=== PATIENT | female | born 1995 | race Caucasian/White ===

== ENCOUNTER 2017-04-14 22:17 | Emergency (ER) | payer BC, OTHER ==
[2017-04-14 22:30] VITALS: BP 119/76; PULSE 85; TEMP 97.8; BMI 27.4
[2017-04-14] MEDS ORDERED: VANCOMYCIN 1 GRAM (PRE-DOCKED) 1,000 MG/250 ML BAG IVPB ONE (22:37)
[2017-04-14] MEDS ORDERED: VANCOMYCIN 1,000 MG VIAL (RESTRICTED TO ID ONLY) ONE (22:41)
--- NOTE | 2017-04-14 22:46 | PDOC ---
History of Present Illness - General Chief Complaint: Redness To Affected Area Stated Complaint: REDNESS TO LT HAND 2ND FINGER Time Seen by Provider: 04/14/17 22:35 History Source: Patient Exam Limitations: No Limitations - History of Present Illness Initial Comments: 04/14/17 22:49 This is a 21-year-old female who comes in complaining of a infection in her left index finger. Patient is been dealing with this infection times over a week. Patient has had multiple visits to urgent care center. Patient was initially diagnosed with a paronychia which was incised and drained with out any. Months. Patient was started on Bactrim and has been on Bactrim for about 5 days. Patient said the infection got worse so she returned and an attempt at opening it on the palmar side was made and she was started on clindamycin in addition to the Bactrim. Patient has been on clindamycin now 2 days and says that it is minimally better but still not improved significantly. Patient denies any fevers or chills. Patient says that the tip of the finger is uncomfortable but not painful. Patient denies any streaking up her hand or arm. PAST MEDICAL HISTORY: no significant history PAST SURGICAL HISTORY: no significant history FAMILY HISTORY: no pertinant history SOCIAL HISTORY: Pt lives with family and is employed. MEDICATIONS: reviewed ALLERGIES: As per nursing notes Review of Systems General: No fevers or chills, no weakness, no weight loss HEENT: No change in vision. No sore throat,. No ear pain CardioVascular: No chest pain or shortness of breath Respiratory:No cough, or wheezing. Gastrointestinal: no nausea, vomitting, diarrhea or constipation, No rectal bleeding Genitourinary: No dysuria, hematuria, or frequency Musculoskeletal: No joint or muscle pain or swelling Neurologic: No headache, vertigo, dizziness or loss of consciousness Psychiatric: nor depression Skin: No rashes or easy bruising Endocrine: no increased thirst or abnormal weight change Allergic: no skin or latex allergy All other systems reviewed and normal GENERAL: The patient is awake, alert, and fully oriented, in no acute distress. HEAD: Normal with no signs of trauma. EYES: Pupils equal, round and reactive to light, extraocular movements intact, sclera anicteric, conjunctiva clear. EXTREMITIES: Normal range of motion, no edema. Left index finger there is some swelling and erythema to the distal phalanx of the left index finger diffusely. There is no purulence. There is no tenderness on palpation of the extensor or flexor tendon sheath. The palmar surface of the distal phalanx is soft to palpation. There is some mild increase in warmth. Neurovascular is intact. NEUROLOGICAL: Normal speech, normal gait. PSYCH: Normal mood, normal affect. SKIN: Warm, Dry, normal turgor, no rashes or lesions noted. Assessment and plan: This is a 21-year-old female who comes in after multiple visits to an urgent care center for an infection in her left index finger. Patient thinks it may have started after she got a manicure. Patient had a CBC done that had a normal white count and no left shift. Patient was referred to Dr. Marquez and told to call him in the morning for a follow-up appointment as soon as possible in the meantime she was told to continue her antibiotics Past History - Past Medical History Allergies/Adverse Reactions: Allergies Allergy/AdvReac Type Severity Reaction Status Date / Time No Known Allergies Allergy Unverified 01/17/14 14:08 Home Medications: Ambulatory Orders Dextroamphetamine/Amphetamine [Adderall 30 Mg Tablet] 30 mg PO DAILY tablet Clindamycin 04/14/17 Desog-E.estradiol/E.estradiol [Desogestr-Eth Estrad Eth Estra] 1 each PO DAILY 04/14/17 Sulfamethoxazole/Trimethoprim [Bactrim Ds -] 1 tab PO BID 04/14/17 Cancer: Yes (SKIN) Thyroid Disease: Yes (HASHIMOTOS) - Suicide/Smoking/Psychosocial Hx Smoking History: Never smoked *Physical Exam - Vital Signs Last Vital Signs Temp Pulse Resp BP Pulse Ox 97.8 F 85 16 119/76 97 04/14/17 22:27 04/14/17 22:27 04/14/17 22:27 04/14/17 22:27 04/14/17 22:27 ED Treatment Course - LABORATORY CBC & Chemistry Diagram: 04/14/17 22:40 *DC/Admit/Observation/Transfer Diagnosis at time of Disposition: Infection of finger - Discharge Dispostion Disposition: HOME Condition at time of disposition: Stable Admit: No - Patient Instructions Additional Instructions: Continue your antibiotics as prescribed. Call Dr. Marquez in the morning at [phone].tell them you were in the [facility] apartment last night and we referred you to him and would like you to be seen and evaluated by him as soon as possible for a infection of your finger. Return to the emergency department immediately with ANY new, persistent or worsening symptoms. Continue any medications as previously prescribed by your physician. You should follow up with your primary doctor as soon as possible regarding today's emergency department visit. . Please make sure your doctor reviews the results of your emergency evaluation. Thank you for coming to the Emergency Department today for your care. It was a pleasure to see you today. Please note that your evaluation is INCOMPLETE until you follow-up with your doctor.
[2017-04-14 22:53] LABS: EOSINOPHIL 1.2 % (0-4.5); MCH 31.2 pg (25.7-33.7); MCHC 34.6 g/dl (32.0-36.0); MEAN CELL VOLUME 90.2 fl (80-96); NEUTROPHILS 52.7 % (42.8-82.8); PLATELET COUNT 295 K/MM3 (134-434); RDW 11.3 % (11.6-15.6); WHITE BLOOD COUNT 6.3 K/mm3 (4.0-10.8)
== END 2017-04-14 23:55 | disposition home or self-care (01) ==
LOC: FER 22:17
DX: L08.9 Local infection of the skin and subcutaneous tissue, unspecified (principal); Z85.828 Personal history of other malignant neoplasm of skin; E06.3 Autoimmune thyroiditis
CPT/HCPCS: 36415; 85025; 99281-25

== ENCOUNTER 2018-11-15 15:24 | Emergency (ER) | payer BC ==
[2018-11-15 15:39] VITALS: BP 117/63; PULSE 91; TEMP 98.9; BMI 25.0
[2018-11-15] MEDS ORDERED: SODIUM CHLORIDE 1,000 ML IV ONE (16:30)
[2018-11-15] MEDS ORDERED: METOCLOPRAMIDE HCL INJECTION 10 MG/2 ML VIAL IVPUSH ONE (16:36)
[2018-11-15] MEDS ORDERED: METOCLOPRAMIDE HCL INJECTION 10 MG/2 ML VIAL ONE (17:09)
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
== END 2018-11-15 17:39 | disposition home or self-care (01) ==
LOC: SUPCPDRO 15:24 → FER 15:24
PROC: 3E033GC Introduction of Other Therapeutic Substance into Peripheral Vein, Percutaneous Approach (ICD-10-PCS; principal; 2018-11-15)
PROC: 3E0337Z Introduction of Electrolytic and Water Balance Substance into Peripheral Vein, Percutaneous Approach (ICD-10-PCS; 2018-11-15)
DX: G44.209 Tension-type headache, unspecified, not intractable (principal); E06.3 Autoimmune thyroiditis
CPT/HCPCS: 84703; 99282-25; J7030

== ENCOUNTER 2019-01-31 08:10 | Emergency (ER) | payer BC ==
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
[2019-01-31 08:17] VITALS: BP 117/70; PULSE 76; TEMP 98.2; BMI 26.0
[2019-01-31] MEDS ORDERED: ACETAMINOPHEN 1000 MG/100 ML VIAL (NON FORMULARY) IVPB ONE (08:27)
[2019-01-31] MEDS ORDERED: METOCLOPRAMIDE HCL INJECTION 10 MG/2 ML VIAL IVPB ONE (08:28)
[2019-01-31] MEDS ORDERED: SODIUM CHLORIDE 1,000 ML IV ONE (08:29)
[2019-01-31] MEDS ORDERED: METOCLOPRAMIDE HCL INJECTION 10 MG/2 ML VIAL ONE (08:54)
[2019-01-31] MEDS ORDERED: ACETAMINOPHEN INJECTION 100 ML IVPB ONE (08:54)
[2019-01-31] MEDS ORDERED: KETOROLAC TROMETHAMINE 30 MG/1 ML VIAL IVPUSH ONE (09:44)
[2019-01-31] MEDS ORDERED: KETOROLAC TROMETHAMINE 30 MG/1 ML VIAL ONE (09:46)
== END 2019-01-31 10:28 | disposition home or self-care (01) ==
LOC: FER 08:10
PROC: 3E033NZ Introduction of Analgesics, Hypnotics, Sedatives into Peripheral Vein, Percutaneous Approach (ICD-10-PCS; principal; 2019-01-31)
PROC: 3E0333Z Introduction of Anti-inflammatory into Peripheral Vein, Percutaneous Approach (ICD-10-PCS; 2019-01-31)
PROC: 3E033GC Introduction of Other Therapeutic Substance into Peripheral Vein, Percutaneous Approach (ICD-10-PCS; 2019-01-31)
PROC: 3E0337Z Introduction of Electrolytic and Water Balance Substance into Peripheral Vein, Percutaneous Approach (ICD-10-PCS; 2019-01-31)
DX: R51 Headache (principal); E06.3 Autoimmune thyroiditis
CPT/HCPCS: 70450-TC; 84703; 99282-25; J0131; J7030

== ENCOUNTER 2019-10-15 13:00 | Inpatient (IN) | payer BC, OTHER ==
[2019-10-15] MEDS ORDERED: SODIUM CHLORIDE 1,878 ML IV ONE (13:26)
[2019-10-15] MEDS ORDERED: VANCOMYCIN 1,000 MG in DEXTROSE 5%-WATER - 250 ML IVPB ONE (13:29)
[2019-10-15] MEDS ORDERED: VANCOMYCIN 1,000 MG VIAL (RESTRICTED TO ID ONLY) ONE (13:38)
--- NOTE | 2019-10-15 13:39 | PDOC ---
Attending Attestation - Resident Resident Name: Terrance Arnett - ED Attending Attestation I have performed the following: I have examined & evaluated the patient, The case was reviewed & discussed with the resident, I agree w/resident's findings & plan, Exceptions are as noted - HPI HPI: 23 yo F PMH Ant thyroiditis, melanoma, recurrent cellulitis presents with L hand pain, swelling, tenderness. She has been on clindamycin with some i mprovement, but not very much. +Red streaks up her arm. - Physicial Exam PE: GENERAL: Awake, alert, and fully oriented, in no acute distress HEAD: No signs of trauma EYES: PERRLA, EOMI, sclera anicteric, conjunctiva clear ENT: Auricles normal inspection, hearing grossly normal, nares patent, oropharynx clear without exudates. Moist mucosa NECK: Normal ROM, supple, no lymphadenopathy, JVD, or masses LUNGS: Breath sounds equal, clear to auscultation bilaterally. No wheezes, and no crackles HEART: Regular rate and rhythm, normal S1 and S2, no murmurs, rubs or gallops ABDOMEN: Soft, nontender, normoactive bowel sounds. No guarding, no rebound. No masses EXTREMITIES: L hand with swelling over the 1st MCP joint with two small bullae, +surrounding erythema and swelling. +Lymphatic streaking up the L arm. Remainder of extremities with normal range of motion, no edema. No clubbing or cyanosis. NEUROLOGICAL: Cranial nerves II through XII grossly intact. Normal speech, normal gait. Motor and sensation intact SKIN: Warm, dry, normal turgor, no rashes or lesions noted. - Medical Decision Making Pt presents with L hand cellulitis with lymphatic streaking. Bullae were incised in ED, +bloody material with some scant purulent material in them. Will give vanco, as she has not had significant improvement on clinda. Admit. Discharge - Discharge Information Problems reviewed: Yes Clinical Impression/Diagnosis: Cellulitis Qualifiers: Site of cellulitis: extremity Site of cellulitis of extremity: upper extremity Laterality: left Qualified Code(s): L03.114 - Cellulitis of left upper limb Condition: Stable - Follow up/Referral - Patient Discharge Instructions - Post Discharge Activity
--- NOTE | 2019-10-15 13:48 | PDOC ---
History of Present Illness - General Chief Complaint: Redness To Affected Area Stated Complaint: LEFT HAND REDNESS Time Seen by Provider: 10/15/19 13:03 History Source: Patient Exam Limitations: No Limitations - History of Present Illness Initial Comments: Ally Lilly is a 23 yo F w a pmh of Ant's thyroiditis, melanoma, and recurrent left hand infections who presents to the [facility] ER because she has left hand pain, swelling, redness, and tendernass along with two dark colored blisters on the palm of her hand. She states she has been getting these hand infections on and off for many years and they usually respond to clindamycin. She has been taking 900mg of clindamycin for the past 2 days but the infection has gotten worse. When this happened in the past she required hospital admission for IV antibiotics. She was recently seen at urgent care and prescribed v alacyclovir in case her infection was herpetic in nature. She reports no relief from either the clindamycin or the valacyclovir. Denies fevers, chills, cough, chest pain, SOB, abdominal pain, nausea, vomiting, dysuria, frequency, urgency. PCP: In [facility] PSH: Melanoma removal Allergies: NKA, NKDA Social Hx: Pt is a student at [employer]. Drinks recreationally. Denies smoking or other substance abuse. Meds: OCPs Past History - Past Medical History Allergies/Adverse Reactions: Allergies Allergy/AdvReac Type Severity Reaction Status Date / Time No Known Allergies Allergy Verified 10/15/19 13:03 Home Medications: Ambulatory Orders Clindamycin [Cleocin -] 900 mg PO TID 10/15/19 Valacyclovir HCl [Valtrex -] 1,000 mg PO TID 10/15/19 Cancer: Yes (SKIN CANCER TO SCALP) COPD: No Thyroid Disease: Yes (HASHIMOTOS) - Psycho Social/Smoking Cessation Hx Smoking History: Never smoked Have you smoked in the past 12 months: No Information on smoking cessation initiated: No Hx Alcohol Use: ("social") Drug/Substance Use Hx: No Review of Systems - Review of Systems Able to Perform ROS?: Yes Comments:: CONSTITUTIONAL: Absent: fever, no chills, no fatigue EYES: Absent: visual changes ENT: Absent: ear pain, no sore throat CARDIOVASCULAR: Absent: chest pain, no palpitations RESPIRATORY: Absent: cough, no SOB GI: Absent: abdominal pain, no nausea, no vomiting, no constipation, no diarrhea GENITOURINARY: Absent: dysuria, no frequency, no hematuria MUSKULOSKELETAL: Absent: back pain, no arthralgia, no myalgia SKIN: Present: rash NEURO: Absent: headache *Physical Exam - Vital Signs Last Vital Signs Temp Pulse Resp BP Pulse Ox 99 F 105 H 20 107/72 99 10/15/19 13:00 10/15/19 13:00 10/15/19 13:00 10/15/19 13:10/15/19 13:00 - Physical Exam GENERAL: Well-appearing, well-nourished. No apparent distress. HEENT: Normocephalic, atraumatic. PERRL, EOM intact. CARDIOVASCULAR: Tachycardic rate. Normal S1, S2. Regular rhythm. PULMONARY: No evidence of respiratory distress. Lungs clear to auscultation bilaterally. No wheezing, rales or rhonchi. ABDOMEN: Soft, non-distended, non-tender. EXTREMITIES: Normal ROM in all four extremities. No gross deformities. SKIN: The left palmar surface has two dark colored bullae near the base of the 1st digit around 1x1 cm in size. There is a streaking erythematous linear rash up the forearm which extends up until just proximal to the left shoulder. NEUROLOGICAL: No focal neurological deficits. ED Treatment Course - LABORATORY CBC & Chemistry Diagram: 10/15/19 13:45 10/15/19 13:45 - RADIOLOGY Radiology Studies Ordered: Category Date Time Status HAND- LEFT [RAD] Stat Radiology 10/15/19 13:42 Ordered Medical Decision Making - Medical Decision Making Ally Lilly is a 23 yo F w a pmh of Ant's thyroiditis, melanoma, and recurrent left hand infections who presents to the [facility] ER because she has left hand pain, swelling, redness, and tendernass along with two dark colored blisters on the palm of her hand. She states she has been getting these hand infections on and off for many years and they usually respond to clindamycin. She has been taking 900mg of clindamycin for the past 2 days but the infection has gotten worse. When this happened in the past she required hospital admission for IV antibiotics. She was recently seen at urgent care and prescribed valacyclovir in case her infection was herpetic in nature. She reports no relief from either the clindamycin or the valacyclovir. Denies fevers, chills, cough, chest pain, SOB, abdominal pain, nausea, vomiting, dysuria, frequency, urgency. Vital Signs Temp Pulse Resp BP Pulse Ox 99 F 105 H 20 107/72 99 10/15/19 13:00 10/15/19 13:00 10/15/19 13:00 10/15/19 13:00 10/15/19 13:00 DDx IBNLT: Cellulitis, erysipelas, much less likely necrotizing fasciitiis, electrolyte/metabolis disturbance, sepsis Plan: Labs, Abx, admission for IV Abx after failed outpatient Abx - Empiric Vanc started in ED Labs: Unremarkable XR: No free gas in sub q soft tissues. Dispo: Med/Surg Discharge - Discharge Information Problems reviewed: Yes Clinical Impression/Diagnosis: Cellulitis Qualifiers: Site of cellulitis: extremity Site of cellulitis of extremity: upper extremity Laterality: left Qualified Code(s): L03.114 - Cellulitis of left upper limb Condition: Stable - Admission Yes - Follow up/Referral - Patient Discharge Instructions - Post Discharge Activity
--- NOTE | 2019-10-15 14:13 | HP ---
CHIEF COMPLAINT: Left hand pain, swelling HISTORY OF PRESENT ILLNESS: 23 year-old female with a PMH significant for Ant thyroiditis, melanoma, and recurrent left hand cellulitis, presented to the [facility] with left hand pain, swelling, tenderness, and red streaks up her arm. There were also two dark- colored blisters on the palm of the left hand. She states she gets recurrent infections in the left hand, it never really goes away. Last outbreak was 1 1/2 years ago. In the past she has responded to clindamycin. Two days ago she love stained a paper cut to the finger and it developed erythema and blistering over the site of injust. She has been taking clinda for the past two days but the infection has gotten worse. She also has been taking valacyclovir prescribed at an urgent care center but also to no effect. Denies fever, sweats, chills. ER course was notable for: (1) Two bullae incised and drained (2) Vanc x 1 Recent Travel: No PAST MEDICAL HISTORY: Ant's thyroiditis Melanoma Recurrent left hand cellulitis PAST SURGICAL HISTORY: None reported Social History: student at [email or web address] Smoking: no Alcohol: recreationally Drugs: no Allergies No Known Allergies Allergy (Verified 10/15/19 13:03) HOME MEDICATIONS: Home Medications Medication Instructions Recorded Clindamycin [Cleocin -] 900 mg PO TID 10/15/19 Valacyclovir HCl [Valtrex -] 1,000 mg PO TID 10/15/19 REVIEW OF SYSTEMS CONSTITUTIONAL: Absent: fever, chills, diaphoresis, generalized weakness, malaise, loss of appetite, weight change HEENT: Absent: rhinorrhea, nasal congestion, throat pain, throat swelling, difficulty swallowing, mouth swelling, ear pain, eye pain, visual changes CARDIOVASCULAR: Absent: chest pain, syncope, palpitations, irregular heart rate, lightheadedness, peripheral edema RESPIRATORY: Absent: cough, shortness of breath, dyspnea with exertion, orthopnea, wheezing, stridor, hemoptysis GASTROINTESTINAL: Absent: abdominal pain, abdominal distension, nausea, vomiting, diarrhea, constipation, melena, hematochezia GENITOURINARY: Absent: dysuria, frequency, urgency, hesitancy, hematuria, flank pain, genital pain MUSCULOSKELETAL: Absent: myalgia, arthralgia, joint swelling, back pain, neck pain SKIN: swelling, redness, pain, blistering left index finger, hand, arm Absent: rash, itching, pallor HEMATOLOGIC/IMMUNOLOGIC: Absent: easy bleeding, easy bruising, lymphadenopathy, frequent infections ENDOCRINE: Absent: unexplained weight gain, unexplained weight loss, heat intolerance, cold intolerance NEUROLOGIC: Absent: headache, focal weakness or paresthesias, dizziness, unsteady gait, seizure, mental status changes, bladder or bowel incontinence PSYCHIATRIC: Absent: anxiety, depression, suicidal or homicidal ideation, hallucinations. PHYSICAL EXAMINATION Vital Signs - 24 hr 10/15/19 13:00 Temperature 99 F Pulse Rate 105 H Respiratory 20 Rate Blood Pressure 107/72 O2 Sat by Pulse 99 Oximetry (%) GENERAL: Awake, alert, and fully oriented, in no acute distress. HEAD: Normal with no signs of trauma. EYES: Pupils equal, round and reactive to light, extraocular movements intact, sclera anicteric, conjunctiva clear. No lid lag. EARS, NOSE, THROAT: Ears normal, nares patent, oropharynx clear without ex udates. Moist mucous membranes. NECK: Normal range of motion, supple without lymphadenopathy, JVD, or masses. LUNGS: Breath sounds equal, clear to auscultation bilaterally. No wheezes, and no crackles. No accessory muscle use. HEART: Regular rate and rhythm, normal S1 and S2 without murmur, rub or gallop. ABDOMEN: Soft, nontender, not distended, normoactive bowel sounds, no guarding, no rebound, no masses. No hepatomegaly or splenomegaly. MUSCULOSKELETAL: Normal range of motion at all joints. No bony deformities or tenderness. No CVA tenderness. UPPER EXTREMITIES: Dark circular areas on index finger of left hand, deeply erythematous, tender, no drainage seen; hand and fingers are swollen; red streaking up to the elbow LOWER EXTREMITIES: 2+ pulses, warm, well-perfused. No calf tenderness. No peripheral edema. NEUROLOGICAL: Cranial nerves II-XII intact. Normal speech. Normal gait. ASSESSMENT/PLAN 23 year-old female with a PMH significant for Ant thyroiditis, melanoma, and recurrent left hand cellulitis, admitted for left hand cellulitis. 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 Full code. Visit type - Emergency Visit Emergency Visit: Yes ED Registration Date: 10/15/19 Care time: The patient presented to the Emergency Department on the above date and was hospitalized for further evaluation of their emergent condition. - New Patient This patient is new to me today: No - Critical Care Critical Care patient: No
[2019-10-15 14:20] LABS: BASO % 0.4 % (0-2.0); EOS % 0.4 % (0-4.5); HEMATOCRIT 40.5 % (32.4-45.2); LYMPH % 15.6 % (8-40); MCH 32.4 pg (25.7-33.7); MCHC 34.5 g/dl (32.0-36.0); MEAN CELL VOLUME 93.8 fl (80-96); MEAN PLT VOLUME 7.6 fl (7.5-11.1); NEUT % 74.6 % (42.8-82.8); PLATELET COUNT 235 K/MM3 (134-434); RBC 4.32 M/mm3 (3.60-5.2); RDW 11.4 % (11.6-15.6); WHITE BLOOD COUNT 6.2 K/mm3 (4.0-10.8)
[2019-10-15 14:24] LABS: INR 1.14 (0.82-1.09); PROTHROMBIN TIME (PATIENT) 12.7 SEC (10.2-13.0)
[2019-10-15 14:29] LABS: ALBUMIN 4.1 g/dl (3.4-5.0); BILIRUBIN,TOTAL 0.7 mg/dl (0.2-1); CALCIUM 9.1 mg/dl (8.5-10); CREATININE 0.6 mg/dl (0.55-1.3); TOT PROT 7.6 g/dl (6.4-8.2)
[2019-10-15 14:31] LABS: ACTIVATED PTT 25.8 SECONDS (25.2-36.5)
[2019-10-15 14:33] LABS: HCG,QUALITATIVE URINE Negative
[2019-10-15 14:43] LABS: EPITHELIAL CELLS MANY /hpf
--- NOTE | 2019-10-15 15:27 | HP ---
CHIEF COMPLAINT: PCP: HISTORY OF PRESENT ILLNESS: ER course was notable for: (1) (2) (3) Recent Travel: PAST MEDICAL HISTORY: PAST SURGICAL HISTORY: Social History: Smoking: Alcohol: Drugs: Allergies No Known Allergies Allergy (Verified 10/15/19 13:03) HOME MEDICATIONS: Home Medications Medication Instructions Recorded Clindamycin [Cleocin -] 900 mg PO TID 10/15/19 Valacyclovir HCl [Valtrex -] 1,000 mg PO TID 10/15/19 REVIEW OF SYSTEMS CONSTITUTIONAL: Absent: fever, chills, diaphoresis, generalized weakness, malaise, loss of appetite, weight change HEENT: Absent: rhinorrhea, nasal congestion, throat pain, throat swelling, difficulty swallowing, mouth swelling, ear pain, eye pain, visual changes CARDIOVASCULAR: Absent: chest pain, syncope, palpitations, irregular heart rate, lightheadedness, peripheral edema RESPIRATORY: Absent: cough, shortness of breath, dyspnea with exertion, orthopnea, wheezing, stridor, hemoptysis GASTROINTESTINAL: Absent: abdominal pain, abdominal distension, nausea, vomiting, diarrhea, constipation, melena, hematochezia GENITOURINARY: Absent: dysuria, frequency, urgency, hesitancy, hematuria, flank pain, genital pain MUSCULOSKELETAL: Absent: myalgia, arthralgia, joint swelling, back pain, neck pain SKIN: Absent: rash, itching, pallor HEMATOLOGIC/IMMUNOLOGIC: Absent: easy bleeding, easy bruising, lymphadenopathy, frequent infections ENDOCRINE: Absent: unexplained weight gain, unexplained weight loss, heat intolerance, cold intolerance NEUROLOGIC: Absent: headache, focal weakness or paresthesias, dizziness, unsteady gait, seizure, mental status changes, bladder or bowel incontinence PSYCHIATRIC: Absent: anxiety, depression, suicidal or homicidal ideation, hallucinations. PHYSICAL EXAMINATION Vital Signs - 24 hr 10/15/19 10/15/19 13:00 14:40 Temperature 99 F 98.7 F Pulse Rate 105 H Pulse Rate [ 85 Left Apical] Respiratory 20 18 Rate Blood Pressure 107/72 Blood Pressure 102/58 L [Right Arm] O2 Sat by Pulse 99 97 Oximetry (%) GENERAL: Awake, alert, and fully oriented, in no acute distress. HEAD: Normal with no signs of trauma. EYES: Pupils equal, round and reactive to light, extraocular movements intact, sclera anicteric, conjunctiva clear. No lid lag. EARS, NOSE, THROAT: Ears normal, nares patent, oropharynx clear without exudates. Moist mucous membranes. NECK: Normal range of motion, supple without lymphadenopathy, JVD, or masses. LUNGS: Breath sounds equal, clear to auscultation bilaterally. No wheezes, and no crackles. No accessory muscle use. HEART: Regular rate and rhythm, normal S1 and S2 without murmur, rub or gallop. ABDOMEN: Soft, nontender, not distended, normoactive bowel sounds, no guarding, no rebound, no masses. No hepatomegaly or splenomegaly. MUSCULOSKELETAL: Normal range of motion at all joints. No bony deformities or tenderness. No CVA tenderness. UPPER EXTREMITIES: 2+ pulses, warm, well-perfused. No cyanosis. No clubbing. No peripheral edema. LOWER EXTREMITIES: 2+ pulses, warm, well-perfused. No calf tenderness. No peripheral edema. NEUROLOGICAL: Cranial nerves II-XII intact. Normal speech. Normal gait. PSYCHIATRIC: Cooperative. Good eye contact. Appropriate mood and affect. SKIN: Warm, dry, normal turgor, no rashes or lesions noted, normal capillary refill. Laboratory Results - last 24 hr 10/15/19 10/15/19 10/15/19 13:45 13:45 13:45 WBC 6.2 RBC 4.32 Hgb 14.0 Hct 40.5 MCV 93.8 MCH 32.4 MCHC 34.5 RDW 11.4 L Plt Count 235 MPV 7.6 Absolute Neuts (auto) 4.6 Neutrophils % 74.6 Lymphocytes % 15.6 Monocytes % 9.0 Eosinophils % 0.4 Basophils % 0.4 PT with INR 12.7 INR 1.14 PTT (Actin FS) 25.8 Sodium 133 L Potassium 4.0 Chloride 102 Carbon Dioxide 25 Anion Gap 6 L BUN 16.0 Creatinine 0.6 Est GFR (CKD-EPI)AfAm 148.90 Est GFR (CKD-EPI)NonAf 128.48 Random Glucose 91 Calcium 9.1 Total Bilirubin 0.7 AST 18 ALT 13 Alkaline Phosphatase 71 Creatine Kinase 31 Total Protein 7.6 Albumin 4.1 Urine Color Urine Appearance Urine pH Urine Protein Urine Glucose (UA) Urine Ketones Urine Blood Urine Nitrite Urine Bilirubin Urine Urobilinogen Ur Leukocyte Esterase Urine RBC Urine WBC Ur Transition Epith Cell Urine Bacteria Urine HCG, Qual 03/24/20 14:15 WBC RBC Hgb Hct MCV MCH MCHC RDW Plt Count MPV Absolute Neuts (auto) Neutrophils % Lymphocytes % Monocytes % Eosinophils % Basophils % PT with INR INR PTT (Actin FS) Sodium Potassium Chloride Carbon Dioxide Anion Gap BUN Creatinine Est GFR (CKD-EPI)AfAm Est GFR (CKD-EPI)NonAf Random Glucose Calcium Total Bilirubin AST ALT Alkaline Phosphatase Creatine Kinase Total Protein Albumin Urine Color Yellow Urine Appearance Slightly Urine pH 6.5 Urine Protein Negative Urine Glucose (UA) Negative Urine Ketones Negative Urine Blood 2+ H Urine Nitrite Negative Urine Bilirubin Negative Urine Urobilinogen 0.2 Ur Leukocyte Esterase 1+ Urine RBC 80-100 Urine WBC 60-80 Ur Transition Epith Cell Many Urine Bacteria Many Urine HCG, Qual Negative ASSESSMENT/PLAN:
[2019-10-15 15:55] VITALS: BMI 25.6
--- NOTE | 2019-10-15 16:20 | CON.ID ---
Consult - Past Medical History ...LMP: 09/25/19 ...: No - Alcohol/Substance Use Hx Alcohol Use: ("social") - Smoking History Smoking history: Never smoked Have you smoked in the past 12 months: No Home Medications - Allergies Allergies/Adverse Reactions: Allergies Allergy/AdvReac Type Severity Reaction Status Date / Time No Known Allergies Allergy Verified 10/15/19 13:03 - Home Medications Home Medications: Ambulatory Orders Clindamycin [Cleocin -] 900 mg PO TID 10/15/19 Valacyclovir HCl [Valtrex -] 1,000 mg PO TID 10/15/19 Physical Exam Vital Signs: Vital Signs Temperature 98.4 F 10/15/19 15:21 Pulse Rate 98 H 10/15/19 15:21 Respiratory Rate 18 10/15/19 15:21 Blood Pressure 110/70 10/15/19 15:21 O2 Sat by Pulse Oximetry (%) 97 10/15/19 15:21 Labs: CBC, BMP 10/15/19 13:45 10/15/19 13:45
[2019-10-15] MEDS ORDERED: PIPERACILLIN/TAZOBACTAM 3.375 GM VIAL IVPB ONE (17:17)
[2019-10-15] MEDS ORDERED: DEXTROSE 5%-WATER - 50 ML IVPB ONE (17:17)
[2019-10-15] MEDS: PIPERACILLIN/TAZOB 3.375 GM 3.375 GM in DEXTROSE 5%-WATER - 50 ML IVPB SCH (17:37)
[2019-10-15] MEDS: SODIUM CHLORIDE 1,000 ML IV SCH (17:38)
[2019-10-16] MEDS: PIPERACILLIN/TAZOB 3.375 GM 3.375 GM in DEXTROSE 5%-WATER - 50 ML IVPB SCH ×3 (02:00→17:42)
[2019-10-16] MEDS ORDERED: PIPERACILLIN/TAZOBACTAM 3.375 GM VIAL IVPB ONE ×3 (03:27→17:39)
[2019-10-16] MEDS ORDERED: DEXTROSE 5%-WATER - 50 ML IVPB ONE ×3 (03:28→17:39)
[2019-10-16 08:01] LABS: BASO % 0.5 % (0-2.0); EOS % 1.3 % (0-4.5); HEMATOCRIT 34.4 % (32.4-45.2); HEMOGLOBIN 11.7 GM/dl (10.7-15.3); LYMPH % 28.5 % (8-40); MCHC 33.9 g/dl (32.0-36.0); MEAN CELL VOLUME 94.2 fl (80-96); MEAN PLT VOLUME 7.3 fl (7.5-11.1); MONO % 10.4 % (3.8-10.2); NEUT % 59.3 % (42.8-82.8); PLATELET COUNT 214 K/MM3 (134-434); RBC 3.65 M/mm3 (3.60-5.2); RDW 11.6 % (11.6-15.6)
[2019-10-16 08:09] LABS: ALBUMIN 3.3 g/dl (3.4-5.0); BILIRUBIN,TOTAL 0.7 mg/dl (0.2-1); CALCIUM 8.8 mg/dl (8.5-10); CREATININE 0.7 mg/dl (0.55-1.3); MAGNESIUM 1.9 mg/dL (1.8-2.4); POTASSIUM 3.9 mmol/L (3.5-5.1); TOT PROT 6.3 g/dl (6.4-8.2)
[2019-10-16] MEDS: ENOXAPARIN NA (PORCINE) 40 MG/0.4 ML DISP.SYRIN SQ SCH (09:33)
--- NOTE | 2019-10-16 10:20 | EKG ---
Test Reason : Blood Pressure : / mmHG Vent. Rate : 073 BPM Atrial Rate : 073 BPM P-R Int : 138 ms QRS Dur : 082 ms QT Int : 370 ms P-R-T Axes : 018 066 042 degrees QTc Int : 407 ms NORMAL SINUS RHYTHM NORMAL ECG WHEN COMPARED WITH ECG OF 21-MAR-2018 14:59, NO SIGNIFICANT CHANGE WAS FOUND Confirmed by Gary Huddleston MD ([id number]) on 10/16/2019 10:20:10 AM Referred By: GIO DSOUZA Confirmed By:Gary Huddleston MD
--- NOTE | 2019-10-16 13:25 | CON.ORTH ---
Consult Consult Specialty:: orthopedic surgery - History of Present Illness Chief Complaint: 23y F here for L hand injury. pt sustained paper cut several days ago. developed erythema, blistering over site of injury. seen by two ID specialists. tiffanie w valshaila clinda. hx of mulitple episodes of cellulitis in LUE tx ray clinda, started with paronychia. notes feeling much better since starting IV abx. less pain. no other infectious issues - History Source History Provided By: Patient, Medical Record Limitations to Obtaining History: No Limitations - Past Medical History ...LMP: 09/25/19 ...: No Additional Medical History: hypothyroid (autoimmune). melanoma - Alcohol/Substance Use Hx Alcohol Use: ("social") - Smoking History Smoking history: Never smoked Have you smoked in the past 12 months: No Home Medications - Allergies Allergies/Adverse Reactions: Allergies Allergy/AdvReac Type Severity Reaction Status Date / Time No Known Allergies Allergy Verified 10/15/19 13:03 - Home Medications Home Medications: Ambulatory Orders Clindamycin [Cleocin -] 900 mg PO TID 10/15/19 Valacyclovir HCl [Valtrex -] 1,000 mg PO TID 10/15/19 Review of Systems - Review of Systems Constitutional: reports: No Symptoms Eyes: reports: No Symptoms HENT: reports: No Symptoms Cardiovascular: reports: No Symptoms Respiratory: reports: No Symptoms Physical Exam for Ortho Vital Signs: Vital Signs Temperature 98.8 F 10/16/19 09:27 Pulse Rate 86 10/16/19 09:27 Respiratory Rate 20 10/16/19 09:27 Blood Pressure 100/54 L 10/16/19 09:27 O2 Sat by Pulse Oximetry (%) 100 10/16/19 09:27 Constitutional: Yes: Well Nourished, No Distress, Calm Cardiovascular: Yes: Regular Rate and Rhythm Respiratory: Yes: Regular Labs: CBC, BMP 10/16/19 07:00 10/16/19 07:00 INR, PTT INR 1.14 (0.82-1.09) 10/15/19 13:45 - Upper Extremity Hand: Yes: Left, Swelling (mild), Tenderness (volar over 2nd MP joint. Ruptured overlying blood blisters without drainage or fluctuance. 50% ROM of digit with mild discomfort. No fusiform swelling. No flexor sheath tenderness.). No: Deformity Imaging - Results X-ray: Report Reviewed, Image Reviewed (no bony pathology) Problem List - Problems (1) Left arm cellulitis Assessment/Plan: Pt's wound shows no evidence of further collection, no surgical intervention needed at this time Continue abx Elevate Will come by tomorrow for wound check Code(s): L03.114 - CELLULITIS OF LEFT UPPER LIMB
--- NOTE | 2019-10-16 13:58 | PN ---
Progress Note, Physician History of Present Illness: stable no issues feeling better ortho note noted - Current Medication List Current Medications: Active Medications Enoxaparin Sodium (Lovenox -) 40 mg SQ DAILY [facility] Last Admin: 10/16/19 09:33 Dose: Not Given Documented by: Piperacillin Sod/Tazobactam (Sod 3.375 gm/ Dextrose) 50 mls @ 100 mls/hr IVPB Q8H-IV DAMIEN; Protocol Last Admin: 10/16/19 09:32 Dose: 100 mls/hr Documented by: Sodium Chloride (Normal Saline -) 1,000 mls @ 75 mls/hr IV ASDIR DAMIEN Last Admin: 10/15/19 17:38 Dose: 75 mls/hr Documented by: - Objective Vital Signs: Vital Signs Temperature 98.8 F 10/16/19 09:27 Pulse Rate 86 10/16/19 09:27 Respiratory Rate 20 10/16/19 09:27 Blood Pressure 100/54 L 10/16/19 09:27 O2 Sat by Pulse Oximetry (%) 100 10/16/19 09:27 Constitutional: Yes: No Distress, Calm Cardiovascular: Yes: S1, S2 Respiratory: Yes: Regular, CTA Bilaterally Gastrointestinal: Yes: Normal Bowel Sounds, Soft Musculoskeletal: Yes: WNL Extremities: Yes: WNL Wound/Incision: Yes: Clean/Dry, Open to air Neurological: Yes: Alert, Oriented Psychiatric: Yes: Alert, Oriented Labs: CBC, BMP 10/16/19 07:00 10/16/19 07:00 INR, PTT INR 1.14 (0.82-1.09) 10/15/19 13:45
--- NOTE | 2019-10-16 16:48 | PN ---
Physical Exam: SUBJECTIVE: Patient seen and examined OBJECTIVE: Vital Signs Period Temp Pulse Resp BP Sys/Braga Pulse Ox Last 24 Hr 98.3 F-98.8 F 80-94 18-20 100-106/54-62 99-100 GENERAL: Awake, alert, and fully oriented, in no acute distress. HEAD: Normal with no signs of trauma. EYES: Pupils equal, round and reactive to light, extraocular movements intact, sclera anicteric, conjunctiva clear. No lid lag. EARS, NOSE, THROAT: Ears normal, nares patent, oropharynx clear without exudates. Moist mucous membranes. NECK: Normal range of motion, supple without lymphadenopathy, JVD, or masses. LUNGS: Breath sounds equal, clear to auscultation bilaterally. No wheezes, and no crackles. No accessory muscle use. HEART: Regular rate and rhythm, normal S1 and S2 without murmur, rub or gallop. ABDOMEN: Soft, nontender, not distended, normoactive bowel sounds, no guarding, no rebound, no masses. No hepatomegaly or splenomegaly. MUSCULOSKELETAL: Normal range of motion at all joints. No bony deformities or tenderness. No CVA tenderness. UPPER EXTREMITIES: Dark circular areas on index finger of left hand, deeply erythematous, tender, no drainage seen; hand and fingers are swollen; red streaking up to the elbow LOWER EXTREMITIES: 2+ pulses, warm, well-perfused. No calf tenderness. No peripheral edema. NEUROLOGICAL: Cranial nerves II-XII intact. Normal speech. Normal gait. Laboratory Results - last 24 hr 10/16/19 10/16/19 07:00 07:00 WBC 7.0 RBC 3.65 Hgb 11.7 Hct 34.4 D MCV 94.2 MCH 32.0 MCHC 33.9 RDW 11.6 Plt Count 214 MPV 7.3 L Absolute Neuts (auto) 4.2 Neutrophils % 59.3 Lymphocytes % 28.5 Monocytes % 10.4 H Eosinophils % 1.3 Basophils % 0.5 Sodium 134 L Potassium 3.9 Chloride 104 Carbon Dioxide 23 Anion Gap 7 L BUN 11.0 Creatinine 0.7 Est GFR (CKD-EPI)AfAm 141.54 Est GFR (CKD-EPI)NonAf 122.12 Random Glucose 88 Calcium 8.8 Magnesium 1.9 Total Bilirubin 0.7 AST 14 L ALT 13 Alkaline Phosphatase 57 D Total Protein 6.3 L Albumin 3.3 L Active Medications Generic Name Dose Route Start Last Admin Trade Name Hung PRN Reason Stop Dose Admin Enoxaparin Sodium 40 mg 10/16/19 10:00 10/16/19 09:33 Lovenox - SQ Not Given DAILY DAMIEN Piperacillin Sod/Tazobactam 50 mls @ 100 mls/hr 10/15/19 18:00 10/16/19 09:32 Sod 3.375 gm/ Dextrose IVPB 100 mls/hr Q8H-IV DAMIEN Administration Protocol Sodium Chloride 1,000 mls @ 75 mls/hr 10/15/19 17:15 10/15/19 17:38 Normal Saline - IV 75 mls/hr ASDIR DAMIEN Administration ASSESSMENT/PLAN: 23 year-old female with a PMH significant for Ant thyroiditis, melanoma, and recurrent left hand cellulitis, admitted for left hand cellulitis. Left hand cellulitis --flat, deeply erythematous blistering on index finger --lymphangitic spread up arm has resolved but significant swelling to hand and fingers persists; ortho again examined but no fluid to drain --seen and evaluated by ortho --seen and evaluated by ID --will get MRI to r/o osteo --continue Zosyn (dayu #2) Hashimotos --not on medication Melanoma --skin excision years ago, stable FEN Fluids: PO intake adequate Electrolytes: replete as indicated Nutrition: regular diet DVT prophylaxis: subq lovenox Dispo: continues to require inpatient care. Full code. Visit type - Emergency Visit Emergency Visit: Yes ED Registration Date: 10/15/19 Care time: The patient presented to the Emergency Department on the above date and was hospitalized for further evaluation of their emergent condition. - New Patient This patient is new to me today: No - Critical Care Critical Care patient: No
[2019-10-16] MEDS: SODIUM CHLORIDE 1,000 ML IV SCH (17:42)
[2019-10-17] MEDS ORDERED: DEXTROSE 5%-WATER - 50 ML IVPB ONE ×3 (01:16→17:35)
[2019-10-17] MEDS ORDERED: PIPERACILLIN/TAZOBACTAM 3.375 GM VIAL IVPB ONE ×3 (01:16→17:35)
[2019-10-17] MEDS: PIPERACILLIN/TAZOB 3.375 GM 3.375 GM in DEXTROSE 5%-WATER - 50 ML IVPB SCH ×3 (01:22→18:00)
[2019-10-17] MEDS: ENOXAPARIN NA (PORCINE) 40 MG/0.4 ML DISP.SYRIN SQ SCH (09:40)
--- NOTE | 2019-10-17 10:56 | PN ---
Progress Note (short form) - Note Progress Note: Pt lying comf in bed Less pain and swelling No other complaints AF VSS L index finger shows improved motion, now about 60% flexion and full extension Blood blisters stable, less surrounding induration and scant fluctuance in the radial most blister scant erythema fds fdp ed intact sens int to LT 2+ rad pulse A LUE resolving cellulitis P patient is much improved stable for DC from ortho perspective will require transition to PO abx per plan to follow up in 4-5 days for wound check Problem List - Problems (1) Left arm cellulitis Code(s): L03.114 - CELLULITIS OF LEFT UPPER LIMB
--- NOTE | 2019-10-17 12:11 | PN ---
Progress Note, Physician History of Present Illness: stable still hand swelling present - Current Medication List Current Medications: Active Medications Enoxaparin Sodium (Lovenox -) 40 mg SQ DAILY [facility] Last Admin: 10/17/19 09:40 Dose: Not Given Documented by: Piperacillin Sod/Tazobactam (Sod 3.375 gm/ Dextrose) 50 mls @ 100 mls/hr IVPB Q8H-IV DAMIEN; Protocol Last Admin: 10/17/19 09:40 Dose: 100 mls/hr Documented by: Sodium Chloride (Normal Saline -) 1,000 mls @ 75 mls/hr IV ASDIR DAMIEN Last Admin: 10/16/19 17:42 Dose: 75 mls/hr Documented by: - Objective Vital Signs: Vital Signs Temperature 98.3 F 10/17/19 06:00 Pulse Rate 74 10/17/19 06:00 Respiratory Rate 18 10/17/19 06:00 Blood Pressure 95/51 L 10/17/19 06:00 O2 Sat by Pulse Oximetry (%) 100 10/17/19 08:49 Constitutional: Yes: No Distress, Calm Respiratory: Yes: Regular, CTA Bilaterally Gastrointestinal: Yes: Normal Bowel Sounds, Soft Musculoskeletal: Yes: WNL Extremities: Yes: Other Neurological: Yes: Alert, Oriented Psychiatric: Yes: Alert, Oriented Labs: CBC, BMP 10/16/19 07:00 10/16/19 07:00 INR, PTT INR 1.14 (0.82-1.09) 10/15/19 13:45
--- NOTE | 2019-10-17 14:17 | PN ---
Physical Exam: SUBJECTIVE: Patient seen and examined at bedside. Waiting for MRI. Pain in hand is better, movement of fingers better. OBJECTIVE: Vital Signs Period Temp Pulse Resp BP Sys/Braga Pulse Ox Last 24 Hr 98.2 F-98.8 F 65-92 18-20 95-106/51-69 98-100 GENERAL: Awake, alert, and fully oriented, in no acute distress. HEAD: Normal with no signs of trauma. EYES: Pupils equal, round and reactive to light, extraocular movements intact, sclera anicteric, conjunctiva clear. No lid lag. EARS, NOSE, THROAT: Ears normal, nares patent, oropharynx clear without exudates. Moist mucous membranes. NECK: Normal range of motion, supple without lymphadenopathy, JVD, or masses. LUNGS: Breath sounds equal, clear to auscultation bilaterally. No wheezes, and no crackles. No accessory muscle use. HEART: Regular rate and rhythm, normal S1 and S2 without murmur, rub or gallop. ABDOMEN: Soft, nontender, not distended, normoactive bowel sounds, no guarding, no rebound, no masses. No hepatomegaly or splenomegaly. MUSCULOSKELETAL: Normal range of motion at all joints. No bony deformities or tenderness. No CVA tenderness. UPPER EXTREMITIES: Dark circular areas on index finger of left hand, deeply erythematous, tender, no drainage seen; hand and fingers are swollen; red streaking up to the elbow LOWER EXTREMITIES: 2+ pulses, warm, well-perfused. No calf tenderness. No peripheral edema. NEUROLOGICAL: Cranial nerves II-XII intact. Normal speech. Normal gait. Active Medications Generic Name Dose Route Start Last Admin Trade Name Bcq PRN Reason Stop Dose Admin Enoxaparin Sodium 40 mg 10/16/19 10:00 10/17/19 09:40 Lovenox - SQ Not Given DAILY DAMIEN Piperacillin Sod/Tazobactam 50 mls @ 100 mls/hr 10/15/19 18:00 10/17/19 09:40 Sod 3.375 gm/ Dextrose IVPB 100 mls/hr Q8H-IV DAMIEN Administration Protocol Sodium Chloride 1,000 mls @ 75 mls/hr 10/15/19 17:15 10/16/19 17:42 Normal Saline - IV 75 mls/hr ASDIR DAMIEN Administration ASSESSMENT/PLAN 23 year-old female with a PMH significant for Ant thyroiditis, melanoma, and recurrent left hand cellulitis, admitted for left hand cellulitis. 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 Full code. Visit type - Emergency Visit Emergency Visit: Yes ED Registration Date: 10/15/19 Care time: The patient presented to the Emergency Department on the above date and was hospitalized for further evaluation of their emergent condition. - New Patient This patient is new to me today: No - Critical Care Critical Care patient: No
[2019-10-17] MEDS: SODIUM CHLORIDE 1,000 ML IV SCH (18:00)
[2019-10-17] MEDS ORDERED: LORazepam 0.5 MG TABLET PO ONE (18:34)
[2019-10-18] MEDS ORDERED: PIPERACILLIN/TAZOBACTAM 3.375 GM VIAL IVPB ONE ×2 (00:59→09:39)
[2019-10-18] MEDS ORDERED: DEXTROSE 5%-WATER - 50 ML IVPB ONE ×2 (01:00→09:39)
[2019-10-18] MEDS: PIPERACILLIN/TAZOB 3.375 GM 3.375 GM in DEXTROSE 5%-WATER - 50 ML IVPB SCH ×2 (01:06→10:01)
--- NOTE | 2019-10-18 09:13 | PN ---
Physical Exam: SUBJECTIVE: Patient seen and examined at bedside. Still waiting for MRI. OBJECTIVE: Vital Signs Period Temp Pulse Resp BP Sys/Braga Pulse Ox Last 24 Hr 97.7 F-98.5 F 61-88 18-19 92-104/52-68 99-100 GENERAL: Awake, alert, and fully oriented, in no acute distress. LUNGS: Breath sounds equal, clear to auscultation bilaterally. No wheezes, and no crackles. No accessory muscle use. HEART: Regular rate and rhythm, normal S1 and S2 without murmur, rub or gallop. UPPER EXTREMITIES: Three circular areas on index finger of left hand, deeply erythematous, tender, no drainage, not fluctuant; swelling and erythema mostly resolved LOWER EXTREMITIES: 2+ pulses, warm, well-perfused. No calf tenderness. No peripheral edema. NEUROLOGICAL: Cranial nerves II-XII intact. Normal speech. Normal gait. Active Medications Generic Name Dose Route Start Last Admin Trade Name Freq PRN Reason Stop Dose Admin Enoxaparin Sodium 40 mg 10/16/19 10:00 10/17/19 09:40 Lovenox - SQ Not Given DAILY DAMIEN Piperacillin Sod/Tazobactam 50 mls @ 100 mls/hr 10/15/19 18:00 10/18/19 01:06 Sod 3.375 gm/ Dextrose IVPB 100 mls/hr Q8H-IV DAMIEN Administration Protocol Sodium Chloride 1,000 mls @ 75 mls/hr 10/15/19 17:15 10/17/19 18:00 Normal Saline - IV 75 mls/hr ASDIR DAMIEN Administration ASSESSMENT/PLAN: 23 year-old female with a PMH significant for Ant thyroiditis, melanoma, and recurrent left hand cellulitis, admitted for left hand cellulitis. 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 Full code. Visit type - Emergency Visit Emergency Visit: Yes ED Registration Date: 10/15/19 Care time: The patient presented to the Emergency Department on the above date and was hospitalized for further evaluation of their emergent condition. - New Patient This patient is new to me today: No - Critical Care Critical Care patient: No
[2019-10-18] MEDS: ENOXAPARIN NA (PORCINE) 40 MG/0.4 ML DISP.SYRIN SQ SCH (09:57)
--- NOTE | 2019-10-18 13:43 | DS ---
Physical Exam: SUBJECTIVE: Patient seen and examined at bedside. OBJECTIVE: Vital Signs Period Temp Pulse Resp BP Sys/Braga Pulse Ox Last 24 Hr 97.7 F-98.5 F 61-88 18-19 92-101/52-68 99-100 PHYSICAL EXAM GENERAL: Awake, alert, and fully oriented, in no acute distress. LUNGS: Breath sounds equal, clear to auscultation bilaterally. No wheezes, and no crackles. No accessory muscle use. HEART: Regular rate and rhythm, normal S1 and S2 without murmur, rub or gallop. UPPER EXTREMITIES: Three circular areas on index finger of left hand, deeply erythematous, tender, no drainage, not fluctuant; swelling and erythema mostly resolved LOWER EXTREMITIES: 2+ pulses, warm, well-perfused. No calf tenderness. No peripheral edema. NEUROLOGICAL: Cranial nerves II-XII intact. Normal speech. Normal gait. LABS CBCD WBC 7.0 K/mm3 (4.0-10.8) 10/16/19 07:00 RBC 3.65 M/mm3 (3.60-5.2) 10/16/19 07:00 Hgb 11.7 GM/dl (10.7-15.3) 10/16/19 07:00 Hct 34.4 % (32.4-45.2) D 10/16/19 07:00 MCV 94.2 fl (80-96) 10/16/19 07:00 MCHC 33.9 g/dl (32.0-36.0) 10/16/19 07:00 RDW 11.6 % (11.6-15.6) 10/16/19 07:00 Plt Count 214 K/MM3 (134-434) 10/16/19 07:00 MPV 7.3 fl (7.5-11.1) L 10/16/19 07:00 CMP Sodium 134 mmol/L (136-145) L 10/16/19 07:00 Potassium 3.9 mmol/L (3.5-5.1) 10/16/19 07:00 Chloride 104 mmol/L (98-107) 10/16/19 07:00 Carbon Dioxide 23 mmol/L (21-32) 10/16/19 07:00 Anion Gap 7 MMOL/L (8-16) L 10/16/19 07:00 BUN 11.0 mg/dl (7-18) 10/16/19 07:00 Creatinine 0.7 mg/dl (0.55-1.3) 10/16/19 07:00 Calcium 8.8 mg/dl (8.5-10) 10/16/19 07:00 Total Bilirubin 0.7 mg/dl (0.2-1) 10/16/19 07:00 AST 14 U/L (15-37) L 10/16/19 07:00 ALT 13 U/L (13-61) 10/16/19 07:00 Alkaline Phosphatase 57 U/L (45-117) D 10/16/19 07:00 Total Protein 6.3 g/dl (6.4-8.2) L 10/16/19 07:00 Albumin 3.3 g/dl (3.4-5.0) L 10/16/19 07:00 HOSPITAL COURSE: Date of Admission:10/15/19 Date of Discharge: 10/18/19 Pre hospital course 23 year-old female with a PMH significant for Ant thyroiditis, melanoma, and recurrent left hand cellulitis, presented to the ED with left hand pain, swelling, tenderness, and red streaks up her arm. There were also two dark- colored blisters on the palm of the left hand. She states she gets recurrent infections in the left hand, it never really goes away. Last outbreak was 1 1/2 years ago. In the past she has responded to clindamycin. Two days ago she sustained a paper cut to the finger and it developed erythema and blistering over the site of injust. She has been taking clinda for the past two days but the infection has gotten worse. She also has been taking valacyclovir prescribed at an urgent care center but also to no effect. Denies fever, sweats, chills. ER course (1) Two bullae incised and drained (2) Vanc x 1 Subsequent hospital course 23 year-old female with a PMH significant for Ant thyroiditis, melanoma, and recurrent left hand cellulitis, admitted for left hand cellulitis. Left hand cellulitis --deeply erythematous blistering on index finger --treated with Zosyn x 5 days, resolution of swelling, erythema --MRI: no evidence of osteo --discharged with prescription for augmentin x 10 days Hashimotos thyroiditis --not on medication Melanoma --skin excision years ago, stable Minutes to complete discharge: 35 Discharge Summary Problems reviewed: Yes Reason For Visit: CELLULITIS Current Active Problems Cellulitis (Acute) Left arm cellulitis (Acute) Condition: Improved - Instructions Diet, Activity, Other Instructions: Two prescriptions have been sent to your pharmacy, one for augmentin and the other for clindamycin. Take these medications as directed. It is important you follow up with a provider when you finish the antibiotics. Dr. Lanier is an infectious disease doctor. Call his office to make an appointment. Referrals: Randy Lanier MD [Staff Physician] - Disposition: HOME - Home Medications Comprehensive Discharge Medication List: Ambulatory Orders Clindamycin [Cleocin -] 900 mg PO TID 10/15/19 Valacyclovir HCl [Valtrex -] 1,000 mg PO TID 10/15/19 This patient is new to me today: No Emergency Visit: Yes ED Registration Date: 10/15/19 Care time: The patient presented to the Emergency Department on the above date and was hospitalized for further evaluation of their emergent condition. Critical Care patient: No - Discharge Referral Referred to [facility] No
[2019-10-18 14:01] VITALS: BP 106/56; PULSE 95; TEMP 97.6
== END 2019-10-18 14:30 | disposition home or self-care (01) | DRG 603 ==
LOC: FER 13:00 → FM/S 14:06
PROVIDERS: ADMIT Internal Medicine; ATTEND Nurse Practitioner Acute Care
PROC: 0H9GXZZ Drainage of Left Hand Skin, External Approach (ICD-10-PCS; principal; 2019-10-15)
DX: L03.114 Cellulitis of left upper limb (principal); M79.89 Other specified soft tissue disorders; L53.9 Erythematous condition, unspecified; M79.642 Pain in left hand; E06.3 Autoimmune thyroiditis; Z29.9 Encounter for prophylactic measures, unspecified; Z85.820 Personal history of malignant melanoma of skin; Z85.828 Personal history of other malignant neoplasm of skin
CPT/HCPCS: 36415; 73130-TC-LT-FY; 73218-TC-LT; 80053; 81003; 81015; 82550; 83605; 83735; 84703; 85025; 85610; 85730; 87040; 87086; 93005; 99285-25; J7030

== ENCOUNTER 2020-05-04 14:59 | Emergency (ER) | payer OTHER ==
--- OUTSIDE RECORDS SUMMARY | 2020-05-04 15:11 | XMS ---
:1995 Author Organization [facility] Care Team Providers Name Role Phone RAVIN ALMONTE Unavailable Unavailable WAQAR MARIA Unavailable Unavailable Re-disclosure Warning The records that you are about to access may contain information from federally- assisted alcohol or drug abuse programs. If such information is present, then the following federally mandated warning applies: This information has been disclosed to you from records protected by federal confidentiality rules (42 CFR part 2). The federal rules prohibit you from making any further disclosure of this information unless further disclosure is expressly permitted by the written consent of the person to whom it pertains or as otherwise permitted by 42 CFR part 2. A general authorization for the release of medical or other information is NOT sufficient for this purpose. The Federal rules restrict any use of the information to criminally investigate or prosecute any alcohol or drug abuse patient.The records that you are about to access may contain highly sensitive health information, the redisclosure of which is protected by Article 27-F of the [facility] Public Health law. If you continue you may haveaccess to information: Regarding HIV / AIDS; Provided by facilities licensed or operated by the [facility] Office of Mental Health; or Provided by the [facility] Office for People With Developmental Disabilities. If such information is present, then the following [facility] mandated warning applies: This information has been disclosed to you from confidential records which are protected by state law. State law prohibits you from making any further disclosure of this information without the specific written consent of the person to whom it pertains, or as otherwise permitted by law. Any unauthorized further disclosure in violation of state law may result in a fine or senior living sentence or both. A general authorization for the release of medical or other information is NOT sufficient authorization for further disclosure. Encounters Encounter Providers Location Date Indications Data Source(s ) Outpatient Attender: ADAMCHEIKH 05/07/2019 M79.644 [facility] RAVINAdmitter: 04:02:00 PM [facility] [employer] ZVIReferrer: RAVIN ALMONTE M79.644 Insurance Providers Payer name Policy type Policy ID Covered Covered libertarian's Policy P reta / Coverage libertarian ID relationship to [place] ormation type [place] [id number] [place] [id number] HEALTHCARE PPO [place]IG[place] [id number] [place] [id number] HEALTHCARE PPO [place] OUT [place] [id number] [place] [id number] [place] [id number] [place] [id number] [place] [id number] [place] [id number] [place] Problems, Conditions, and Diagnoses Code Display Name Description Problem Type Effective Dates Data Source(s) M79.644 Pain in right PAIN IN RIGHT Diagnosis 05/07/2019 Vilma leliott finger(s) FINGER(S) 04:02:00 PM [facility] on
--- NOTE | 2020-05-04 15:25 | PDOC ---
History of Present Illness - General Chief Complaint: Wound Stated Complaint: INFECTION TO LEFT INDEX FINGER Time Seen by Provider: 05/04/20 15:05 History Source: Patient Exam Limitations: No Limitations - History of Present Illness Initial Comments: 05/04/20 15:19 24 yo F h/o recurrent L hand infection p/w infection to L 2nd digit similar to prior x3days. States went to urgent care yesterday and was rxed augmentin which she has taken in the past however states today that she noticed streaking up her arm to her humerus. Denies fevers. Denies drainage today, states there was minimal yesterday. Reports pain at blister sites. No known trauma to the area. Denies numbness or weakness in extremities. No other complaints. Past History - Medical History Allergies/Adverse Reactions: Allergies Allergy/AdvReac Type Severity Reaction Status Date / Time No Known Allergies Allergy Verified 05/04/20 15:04 Home Medications: Ambulatory Orders Amoxicillin/Potassium Clav [Augmentin 875-125 Tablet] 1 each PO BID #20 tablet 10/18/19 Mupirocin Cream [Bactroban 2% Cream -] 1 applic DAILY 05/04/20 Cancer: Yes (SKIN CANCER TO SCALP) COPD: No Thyroid Disease: Yes (HASHIMOTOS) Other medical history: ADD, SLEEP APNEA - Reproductive History Is Patient Now?: No - Psycho-Social/Smoking History Smoking History: Never smoked Have you smoked in the past 12 months: No Information on smoking cessation initiated: No - Substance Abuse Hx (Audit-C & DAST Scrn) How often the patient has a drink containing alcohol: 2-4 times / month Number of drinks the patient has on a typical day: 1 or 2 How often the patient has six or more drinks on one occasion: Never Score: In Men: 4 or > Positive; In Women: 3 or > Positive: 2 Screen Result (Pos requires Nsg. Audit-10AR): Negative In the last yr the pt used illegal drug/Rx for NonMed reason: No Score: Yes response is considered Positive: 0 Screen Result (Positive result requires Nsg. DAST-10): Negative Review of Systems - Review of Systems Able to Perform ROS?: Yes Comments:: 05/04/20 15:21 GENERAL/CONSTITUTIONAL: No fever or chills. No weakness. HEAD, EYES, EARS, NOSE AND THROAT: No change in vision. No ear pain or discharge. No sore throat. CARDIOVASCULAR: No chest pain or shortness of breath. RESPIRATORY: No cough, wheezing, or hemoptysis. GASTROINTESTINAL: No nausea, vomiting, diarrhea or constipation. GENITOURINARY: No dysuria, frequency, or change in urination. MUSCULOSKELETAL: as per HPI SKIN: as per HPI NEUROLOGIC: No headache, vertigo, loss of consciousness, or change in strength/sensation. ENDOCRINE: No increased thirst. No abnormal weight change. HEMATOLOGIC/LYMPHATIC: No anemia, easy bleeding, or history of blood clots. ALLERGIC/IMMUNOLOGIC: No hives or skin allergy. *Physical Exam - Vital Signs Last Vital Signs Temp Pulse Resp BP Pulse Ox 98.6 F 100 H 16 107/80 100 05/04/20 15:02 05/04/20 15:02 05/04/20 15:02 05/04/20 15:02 05/04/20 15:02 - Physical Exam 05/04/20 15:22 GENERAL: Well appearing, in no acute distress HEENT: NCAT, conjunctiva not injected, MMM, EOMI NECK: Normal ROM, supple LUNGS: CTAB. Good air entry. No wheezes, No Rhonchi and no crackles HEART: RRR, + s1 s2, no murmurs, rubs or gallops ABDOMEN: Soft, nontender, normoactive bowel sounds. No guarding, no rebound. No masses BACK: no midline or paraspinal tenderness. No CVA tenderness. EXTREMITIES: Warm and well perfused. No LE edema. FROM. flexion/extension/abduction/adduction of all digits intact, +3 bullae/blisters with erythematous base on L 2nd digit by the base and 4th blister on flexor surface of L 2nd digit, mild swelling L 2nd digit with some erythema and increased warmth, sensation intact to light touch, +radial pulses, +streaking up L arm to midhumerus NEUROLOGICAL: Aox3, Speech fluent, face symmetric, tongue/uvula midline. Sensation grossly intact to light touch. Ambulatory with steady gait. Strength intact. No focal deficits. Medical Decision Making - Medical Decision Making 05/04/20 15:25 24 yo F p/w L hand infection not responding to PO abx and has required IV abx for the same in the past, no systemic signs of infection and not rapidly progressive so low suspicion for nec fasc. Plan was for xray, labs, IV abx and admission however patient states she needs to go home to get her things first. R/b/a explained to patient however patient choosing to leave AMA and will return later after she gets her belongings in preparation for an admission. Patient o be discharged AMA with strict return precautions. This clinical encounter is taking place during a federal and state health care emergency attributable to the novel Sheikh Virus pandemic. The [employer] of the Department of Health and Human Services has declared, pursuant to the Public Health Service Act 319F-3 (42 U.S.C. 247d-6d), that a covered persons activities related to medical countermeasures against COVID-19 will be immune from liability under Federal and State law. Discharge - Discharge Information Problems reviewed: Yes Clinical Impression/Diagnosis: Cellulitis of hand, left Condition: Stable Disposition: AGAINST MEDICAL ADVICE - Follow up/Referral - Patient Discharge Instructions Additional Instructions: You are leaving against medical advice. You should return to the ED as soon as you can for admission for IV antibiotics. - Post Discharge Activity
[2020-05-04 15:42] VITALS: BP 107/80; PULSE 100; TEMP 98.6; BMI 24.0
[2020-05-04] MEDS ORDERED: VANCOMYCIN 1,000 MG VIAL (RESTRICTED TO ID ONLY) ONE (18:28)
--- NOTE | 2020-05-05 10:49 | CON.ORTH ---
Consult Consult Specialty:: orthopedics Reason for Consultation:: left hand - History of Present Illness History of Present Illness: 24-year-old female with history of approximately 8 infections in her left hand presented to the ER yesterday due to pain and swelling and redness in her left hand and arm. She was admitted and started on IV antibiotics. She states she has had this several times in the past and seen many specialists and has not had a solid diagnosis of what her condition is. She denies any injury or cut to the hand. last time she had this problem she was told it might be a herpetic laila and was given antivirals but her symptoms got a little worse and ev entually was given IV antibiotics.there are no other associated, aggravating or relieving factors - History Source History Provided By: Patient, Medical Record Limitations to Obtaining History: No Limitations - Past Medical History ...LMP: 04/21/20 ...: No Additional Medical History: hypothyroid (autoimmune). melanoma - Alcohol/Substance Use Hx Alcohol Use: ("social") - Smoking History Smoking history: Never smoked Have you smoked in the past 12 months: No Home Medications - Allergies Allergies/Adverse Reactions: Allergies Allergy/AdvReac Type Severity Reaction Status Date / Time No Known Allergies Allergy Verified 05/04/20 15:04 - Home Medications Home Medications: Ambulatory Orders Desogestrel-Ethinyl Estradiol [Apri] 1 each PO DAILY 05/04/20 Review of Systems - Review of Systems Constitutional: reports: No Symptoms Eyes: reports: No Symptoms HENT: reports: No Symptoms Neck: reports: No Symptoms Cardiovascular: reports: No Symptoms Respiratory: reports: No Symptoms Gastrointestinal: reports: No Symptoms Genitourinary: reports: No Symptoms Breasts: reports: No Symptoms Reported Musculoskeletal: reports: Extremity Pain Integumentary: reports: Erythema, Lesions, Lump Neurological: reports: No Symptoms Endocrine: reports: No Symptoms Hematology/Lymphatic: reports: No Symptoms Psychiatric: reports: No Symptoms Physical Exam for Ortho Vital Signs: Vital Signs Temperature 98.6 F 05/04/20 15:02 Pulse Rate 100 H 05/04/20 15:02 Respiratory Rate 16 05/04/20 15:02 Blood Pressure 107/80 05/04/20 15:02 O2 Sat by Pulse Oximetry (%) 100 05/04/20 15:02 Constitutional: Yes: Well Nourished, No Distress, Calm - Upper Extremity Hand: Yes: Other (there are 3 superficial pustules along the dorsal radial aspect of the index finger near the MCP joint. There is also a proximally 6 x 6 mm pustule along the volar MCP joint crease along the index finger. No other lesions along the hand. There is mild streaking erythema from the hand to the shoulder and there are several skin markers approximating this area. There is no palpable adenopathy. She has full range of motion of the fingers. No evidence of flexor tenosynovitis. Compartments are soft. Neurovascularly intact. Full motion of the fingers) Assessment/Plan 1. Left hand pustules and left upper extremity streaking erythema, possibly herpetic laila, possible bacterial cellulitis I have discussed today's findings and treatment options with the patient. The lesions of the hand most resemble a herpetic laila. There is no deep abscess that requires drainage today. It is possible she may have a bacterial superinfection as well. She is currently on IV antibiotics. No surgical intervention at this time. We will reexamine tomorrow.
== END 2020-05-04 15:32 | disposition left against medical advice (07) ==
LOC: FER 14:59
DX: L03.114 Cellulitis of left upper limb (principal)
CPT/HCPCS: 99284-25

== ENCOUNTER 2020-05-04 17:22 | Inpatient (IN) | payer OTHER ==
--- OUTSIDE RECORDS SUMMARY | 2020-05-04 17:30 | XMS ---
[...] is protected by Article 27-F of the [facility] Public Health law. If you continue you may haveaccess to information: Regarding HIV / AIDS; Provided by facilities licensed or operated by the [facility] Office of Mental Health; or Provided by the [facility] Office for People With Developmental Disabilities. If such information is present, then the following [facility] mandated warning applies: This information has [...] law may result in a fine or shelter sentence or both. A general authorization for the release of medical or other information is NOT sufficient authorization for further disclosure. Encounters Encounter Providers Location Date Indications Data Source(s ) Outpatient Attender: GAGE, 05/07/2019 M79.644 [facility] RAVINAdmitter: 04:02:00 PM [facility] [employer] ZVIReferrer: RAVIN ALMONTE M79.644 Insurance Providers Payer name Policy type Policy ID Covered Covered democrat's Policy P reta / Coverage democrat ID relationship to [place] ormation type [place] [id number] [place] [id number] HEALTHCARE PPO CIGNA [id number] [place]IG[place] [id number] [place] [id number] HEALTHCARE PPO [place] OUT OF [id number] [place] [id number] [facility] BC OUT OF [id number] [place] [id number] [facility] OUT OF [id number] [place] [id number] STATE Problems, Conditions, and Diagnoses Code Display Name Description Problem Type Effective Dates Data Source(s) M79.644 Pain in right PAIN IN RIGHT Diagnosis 05/07/2019 [facility] finger[facility]s) FINGER(S) 04:02:00 PM [facility] on
[2020-05-04] MEDS ORDERED: VANCOMYCIN 1 GM in D5W (PRE-DOCKED) 1,000 MG/250 ML IVPB ONE (17:43)
--- NOTE | 2020-05-04 17:46 | PDOC ---
History of Present Illness - General Chief Complaint: Wound Stated Complaint: L INDEX FINGER INFECTION History Source: Patient Exam Limitations: No Limitations - History of Present Illness Initial Comments: 05/04/20 17:45 Patient was seen by myself earlier today, sent by PMD for admission for IV abx however patient had to go home to get items and returns now for admission for finger infection/cellulitis. 24 yo F h/o recurrent L hand infection p/w infection to L 2nd digit similar to prior x3days. States went to urgent care yesterday and was rxed augmentin which she has taken in the past however states today that she noticed streaking up her arm to her humerus. Denies fevers. Denies drainage today, states there was minimal yesterday. Reports pain at blister sites. No known trauma to the area. D enies numbness or weakness in extremities. No other complaints. Past History - Medical History Allergies/Adverse Reactions: Allergies Allergy/AdvReac Type Severity Reaction Status Date / Time No Known Allergies Allergy Verified 05/04/20 15:04 Home Medications: Ambulatory Orders Desogestrel-Ethinyl Estradiol [Apri] 1 each PO DAILY 05/04/20 Cancer: Yes (SKIN CANCER TO SCALP) COPD: No Thyroid Disease: Yes (HASHIMOTOS) - Reproductive History Is Patient Now?: No - Immunization History Immunization Up to Date: Yes - Psycho-Social/Smoking History Smoking History: Never smoked Have you smoked in the past 12 months: No Information on smoking cessation initiated: No - Substance Abuse Hx (Audit-C & DAST Scrn) How often the patient has a drink containing alcohol: Never Score: In Men: 4 or > Positive; In Women: 3 or > Positive: 0 Screen Result (Pos requires Nsg. Audit-10AR): Negative In the last yr the pt used illegal drug/Rx for NonMed reason: No Score: Yes response is considered Positive: 0 Screen Result (Positive result requires Nsg. DAST-10): Negative Review of Systems - Review of Systems Able to Perform ROS?: Yes Comments:: 05/04/20 17:46 GENERAL/CONSTITUTIONAL: No fever or chills. No weakness. HEAD, EYES, EARS, NOSE AND THROAT: No change in vision. No ear pain or discharge. No sore throat. CARDIOVASCULAR: No chest pain or shortness of breath. RESPIRATORY: No cough, wheezing, or hemoptysis. GASTROINTESTINAL: No nausea, vomiting, diarrhea or constipation. GENITOURINARY: No dysuria, frequency, or change in urination. MUSCULOSKELETAL: as per HPI SKIN: as per HPI NEUROLOGIC: No headache, vertigo, loss of consciousness, or change in strength/sensation. ENDOCRINE: No increased thirst. No abnormal weight change. HEMATOLOGIC/LYMPHATIC: No anemia, easy bleeding, or history of blood clots. ALLERGIC/IMMUNOLOGIC: No hives or skin allergy. *Physical Exam - Vital Signs Last Vital Signs Temp Pulse Resp BP Pulse Ox 99 F 20 L 20 99/68 100 05/04/20 17:24 05/04/20 17:24 05/04/20 17:24 05/04/20 17:24 05/04/20 17:24 - Physical Exam 05/04/20 17:47 GENERAL: Well appearing, in no acute distress HEENT: NCAT, conjunctiva not injected, MMM, EOMI NECK: Normal ROM, supple LUNGS: CTAB. Good air entry. No wheezes, No Rhonchi and no crackles HEART: RRR, + s1 s2, no murmurs, rubs or gallops ABDOMEN: Soft, nontender, normoactive bowel sounds. No guarding, no rebound. No masses BACK: no midline or paraspinal tenderness. No CVA tenderness. EXTREMITIES: Warm and well perfused. No LE edema. FROM. flexio n/extension/abduction/adduction of all digits intact, +3 bullae/blisters with erythematous base on L 2nd digit by the base and 4th blister on flexor surface of L 2nd digit, mild swelling L 2nd digit with some erythema and increased warmth, sensation intact to light touch, +radial pulses, +streaking up L arm to midhumerus NEUROLOGICAL: Aox3, Speech fluent, face symmetric, tongue/uvula midline. Sen sation grossly intact to light touch. Ambulatory with steady gait. Strength intact. No focal deficits. ED Treatment Course - LABORATORY CBC & Chemistry Diagram: 05/05/20 06:49 05/05/20 06:49 - RADIOLOGY Radiology Studies Ordered: Category Date Time Status CHEST PA & LAT [RAD] Stat Radiology 05/04/20 17:43 Ordered Medical Decision Making - Medical Decision Making 05/04/20 17:47 24 yo F sent by PMD for infection of L 2nd digit failed outpatient therapy. Plan: -labs -cxr -xray L hand -vanc -admit This clinical encounter is taking place during a federal and state health care emergency attributable to the novel Sheikh Virus pandemic. The [place] of the Department of Health and Human Services has declared, pursuant to the Public Health Service Act 319F-3 (42 U.S.C. 247d-6d), that a covered persons activities related to medical countermeasures against COVID-19 will be immune from liability under Federal and State law. Discharge - Discharge Information Problems reviewed: Yes Clinical Impression/Diagnosis: Cellulitis Qualifiers: Site of cellulitis: extremity Site of cellulitis of extremity: finger Laterality: left Qualified Code(s): L03.012 - Cellulitis of left finger Condition: Stable - Admission Yes - Follow up/Referral - Patient Discharge Instructions - Post Discharge Activity
[2020-05-04 18:46] LABS: BASO % 0.8 % (0-2.0); EOS % 0.4 % (0-4.5); HEMATOCRIT 42.9 % (32.4-45.2); LYMPH % 17.1 % (8-40); MCH 33.4 pg (25.7-33.7); MEAN CELL VOLUME 95.3 fl (80-96); MEAN PLT VOLUME 7.3 fl (7.5-11.1); MONO % 10.7 % (3.8-10.2); PLATELET COUNT 280 K/MM3 (134-434); RDW 11.4 % (11.6-15.6); WHITE BLOOD COUNT 9.1 K/mm3 (4.0-10.8)
[2020-05-04 18:49] LABS: ALBUMIN 4.8 g/dl (3.4-5.0); BILIRUBIN,TOTAL 0.9 mg/dl (0.2-1); CALCIUM 9.7 mg/dl (8.5-10); CREATININE 0.7 mg/dl (0.55-1.3); POTASSIUM 3.9 mmol/L (3.5-5.1); TOT PROT 8.4 g/dl (6.4-8.2)
--- NOTE | 2020-05-04 19:21 | PDOC ---
*Physical Exam - Vital Signs Last Vital Signs Temp Pulse Resp BP Pulse Ox 99 F 20 L 20 99/68 100 05/04/20 17:24 05/04/20 17:24 05/04/20 17:24 05/04/20 17:24 05/04/20 17:24 ED Treatment Course - LABORATORY CBC & Chemistry Diagram: 05/04/20 18:00 05/04/20 17:29 - ADDITIONAL ORDERS Additional order review: Laboratory Results 05/04/20 17:29 Sodium 135 L Potassium 3.9 Chloride 100 Carbon Dioxide 25 Anion Gap 10 BUN 9.0 Creatinine 0.7 Est GFR (CKD-EPI)AfAm 140.55 Est GFR (CKD-EPI)NonAf 121.27 Random Glucose 96 Calcium 9.7 Total Bilirubin 0.9 AST 20 ALT 12 L Alkaline Phosphatase 61 Total Protein 8.4 H Albumin 4.8 05/04/20 18:00 RBC 4.50 MCV 95.3 MCHC 35.0 RDW 11.4 L MPV 7.3 L Neutrophils % 71.0 Lymphocytes % 17.1 Monocytes % 10.7 H Eosinophils % 0.4 Basophils % 0.8 - Medications Given in the ED: ED Medications Discontinued Medications Generic Name Dose Route Start Last Admin Trade Name Freq PRN Reason Stop Dose Admin Vancomycin HCl 1,000 mg 05/04/20 17:43 05/04/20 18:27 Vancomycin (Pre-Docked) IVPB 05/04/20 17:44 1,000 mg ONCE ONE Administration Protocol ED Progress Note - Progress Note Progress Note: BHcg negative Case discussed with PAO Navarro. Patient admitted to [facility], Dr Goode service Discharge - Discharge Information Problems reviewed: Yes Clinical Impression/Diagnosis: Cellulitis Qualifiers: Site of cellulitis: extremity Site of cellulitis of extremity: finger Laterality: left Qualified Code(s): L03.012 - Cellulitis of left finger Condition: Stable - Admission Yes - Follow up/Referral - Patient Discharge Instructions - Post Discharge Activity
--- OUTSIDE RECORDS SUMMARY | 2020-05-04 20:15 | XMS ---
[...] is protected by Article 27-F of the [facility] Public Health law. If you continue you may haveaccess to information: Regarding HIV / AIDS; Provided by facilities licensed or operated by the [facility] Office of Mental Health; or Provided by the [facility] Office for People With Developmental Disabilities. If such information is present, then the following [facility] mandated warning applies: This information has [...] law may result in a fine or group home sentence or both. A general authorization for the release of medical or other information is NOT sufficient authorization for further disclosure. Encounters Encounter Providers Location Date Indications Data Source(s ) Outpatient Attender: GAGE, 05/07/2019 M79.644 [facility] RAVINAdmitter: 04:02:00 [facility] [employer] ZVIReferrer: RAVIN ALMONTE M79.644 Insurance Providers Payer name Policy type Policy ID Covered Covered green party's Policy P reta / Coverage green party ID relationship to [place] [facility] ormation type [place] [id number] [place] [id number] HEALTHCARE PPO CIGNA [id number] [place] [id number] [place] [id number] [place]ALTHCARE PPO [place] OUT OF [id number] [place] [id number] [facility] BC OUT OF [id number] [place] [id number] [facility] OUT OF [id number] [place] [id number] STATE Problems, Conditions, and Diagnoses Code Display Name Description Problem Type Effective Dates Data Source(s) M79.644 Pain in right PAIN IN RIGHT Diagnosis 05/07/2019 [facility] finger(s) FINGER(S) 04:02:00 PM [facility]
--- NOTE | 2020-05-04 20:46 | HP ---
CHIEF COMPLAINT: left hand index finger with drainage and pain at blister sites. PCP:none HISTORY OF PRESENT ILLNESS: 24 year old female with no past medical history and recurrent left hand infection who presents with an infection to left hand 2nd index finger similar to prior for the past 3 days. She reported she went to urgent care yesterday and she was prescribed Augmentin. She states today she "noticed streaking up her arm.". She denied fever or drainage today. She reported minimal drainage yesterday. She reported pain at blister sites. ER course notable for normal labs ( WBC 9.1, lactic acid 1.4). She is hemodynamically stable and afebrile, temp max 99. She received one dosage of IV Vancomycin 1 gm. Blood cultures drawn and pending. COVID test drawn. Recent Travel: no PAST MEDICAL HISTORY: none PAST SURGICAL HISTORY: none Social History: Smoking:no Alcohol:no Drugs:no Family History: noncontributory Allergies No Known Allergies Allergy (Verified 05/04/20 15:04) HOME MEDICATIONS: Home Medications Medication Instructions Recorded Desogestrel-Ethinyl Estradiol 1 each PO DAILY 05/04/20 [Apri] REVIEW OF SYSTEMS CONSTITUTIONAL: Absent: fever, chills, diaphoresis, generalized weakness, malaise, loss of appetite, weight change HEENT: Absent: rhinorrhea, nasal congestion, throat pain, throat swelling, difficulty swallowing, mouth swelling, ear pain, eye pain, visual changes CARDIOVASCULAR: Absent: chest pain, syncope, palpitations, irregular heart rate, lightheadedness, peripheral edema RESPIRATORY: Absent: cough, shortness of breath, dyspnea with exertion, orthopnea, wheezing, stridor, hemoptysis GASTROINTESTINAL: Absent: abdominal pain, abdominal distension, nausea, vomiting, diarrhea, constipation, melena, hematochezia GENITOURINARY: Absent: dysuria, frequency, urgency, hesitancy, hematuria, flank pain, genital pain MUSCULOSKELETAL: Absent: myalgia, arthralgia, joint swelling, back pain, neck pain SKIN: Absent: rash, itching, pallor, left hand 2nd finger with blisters and pain HEMATOLOGIC/IMMUNOLOGIC: Absent: easy bleeding, easy bruising, lymphadenopathy, frequent infections ENDOCRINE: Absent: unexplained weight gain, unexplained weight loss, heat intolerance, cold intolerance NEUROLOGIC: Absent: headache, focal weakness or paresthesias, dizziness, unsteady gait, seizure, mental status changes, bladder or bowel incontinence PSYCHIATRIC: Absent: anxiety, depression, suicidal or homicidal ideation, hallucinations. PHYSICAL EXAMINATION Vital Signs - 24 hr 05/04/20 17:24 Temperature 99 F Pulse Rate 20 L Respiratory 20 Rate Blood Pressure 99/68 O2 Sat by Pulse 100 Oximetry (%) General no acute distress Vital signs reviewed afebrile Neuro no focal deficits Lungs CTA nonlabored breathing effort Heart s1s2 rate regular and normal Abdomen nontender nondisteded Extremities warm to touch no pitting edema no cyanosis Skin left hand second index finger with pustules nail beds pink radial pulse palpable Mood calm Laboratory Results - last 24 hr 05/04/20 05/04/20 05/04/20 17:29 18:00 18:00 WBC 9.1 RBC 4.50 Hgb 15.0 Hct 42.9 D MCV 95.3 MCH 33.4 MCHC 35.0 RDW 11.4 L Plt Count 280 MPV 7.3 L Absolute Neuts (auto) 6.5 Neutrophils % 71.0 Lymphocytes % 17.1 Monocytes % 10.7 H Eosinophils % 0.4 Basophils % 0.8 Sodium 135 L Potassium 3.9 Chloride 100 Carbon Dioxide 25 Anion Gap 10 BUN 9.0 Creatinine 0.7 Est GFR (CKD-EPI)AfAm 140.55 Est GFR (CKD-EPI)NonAf 121.27 Random Glucose 96 Calcium 9.7 Total Bilirubin 0.9 AST 20 ALT 12 L Alkaline Phosphatase 61 Total Protein 8.4 H Albumin 4.8 Beta HCG, Quant < 1.0 ASSESSMENT/PLAN: 24 year old female with no past medical history and recurrent left hand infection who presents with an infection to left hand 2nd digit. She is being admitted for treatment for left index finger infection. #1 left index finger infection WBC and lactic acid normal normal, currently afebrile received IV Vancomycin c/w IV Vancomycin 1 gm daily Infectious Diseases- Dr. Gray consulted apply warm soaks q4hr blood cultures pending #2 r/o COVID follow up on COVID PCR maintain O2 saturation >90% maintain strict droplet/airborne isolation precautions FEN no IVF indicated BMP daily regular diet DVT Prophylaxis OOB as tolerated Family Medical History Family History: Denies Visit type - Emergency Visit Emergency Visit: Yes ED Registration Date: 05/04/20 Care time: The patient presented to the Emergency Department on the above date and was hospitalized for further evaluation of their emergent condition. - New Patient This patient is new to me today: Yes Date on this admission: 05/04/20 - Critical Care Critical Care patient: No
[2020-05-04 21:31] VITALS: BMI 25.4
[2020-05-05] MEDS ORDERED: SODIUM CHLORIDE 1,000 ML IV STA (07:46)
[2020-05-05] MEDS ORDERED: oxyCODONE HCL 5 MG TABLET PO PRN (07:48)
[2020-05-05] MEDS ORDERED: PIPERACILLIN/TAZOB 3.375 GM 3.375 GM in DEXTROSE 5%-WATER - 50 ML IVPB SCH (08:00)
[2020-05-05 08:07] LABS: BASO % 0.4 % (0-2.0); EOS % 0.7 % (0-4.5); HEMATOCRIT 37.6 % (32.4-45.2); HEMOGLOBIN 12.2 GM/dl (10.7-15.3); LYMPH % 20.7 % (8-40); MCH 31.3 pg (25.7-33.7); MCHC 32.4 g/dl (32.0-36.0); MEAN CELL VOLUME 96.6 fl (80-96); MEAN PLT VOLUME 7.5 fl (7.5-11.1); MONO % 10.7 % (3.8-10.2); NEUT % 67.5 % (42.8-82.8); PLATELET COUNT 228 K/MM3 (134-434); RBC 3.89 M/mm3 (3.60-5.2); RDW 11.6 % (11.6-15.6); WHITE BLOOD COUNT 8.3 K/mm3 (4.0-10.8)
[2020-05-05] MEDS ORDERED: PIPERACILLIN/TAZOBACTAM 3.375 GM VIAL IVPB ONE ×2 (08:08→17:36)
[2020-05-05] MEDS ORDERED: DEXTROSE 5%-WATER - 50 ML IVPB ONE ×2 (08:09→17:37)
--- NOTE | 2020-05-05 08:39 | PN ---
Physical Exam: SUBJECTIVE: Patient seen and examined at bedside. States pain and swelling is worse than last night, streaking up left arm. Patient denies trauma, any type of bite. Thinks she may have gotten a paper cut but not sure. OBJECTIVE: Vital Signs Period Temp Pulse Resp BP Sys/Braga Pulse Ox Last 24 Hr 98.4 F-99.2 F 20-100 16-20 99-116/64-68 97-100 GENERAL: The patient is awake, alert, and fully oriented, in no acute distress. HEAD: Normal with no signs of trauma. EYES: PERRL, extraocular movements intact, sclera anicteric, conjunctiva clear. No ptosis. LUNGS: Breath sounds equal, clear to auscultation bilaterally, no wheezes, no crackles, no accessory muscle use. HEART: Regular rate and rhythm, S1, S2 LUE: five abscesses that encircle the base of the index finger, +swelling, erythema streaks up the arm to the axilla NEUROLOGICAL: Cranial nerves II through XII grossly intact. Normal speech Laboratory Results - last 24 hr 05/04/20 05/04/20 05/04/20 17:29 18:00 18:00 WBC 9.1 RBC 4.50 Hgb 15.0 Hct 42.9 D MCV 95.3 MCH 33.4 MCHC 35.0 RDW 11.4 L Plt Count 280 MPV 7.3 L Absolute Neuts (auto) 6.5 Neutrophils % 71.0 Lymphocytes % 17.1 Monocytes % 10.7 H Eosinophils % 0.4 Basophils % 0.8 Sodium 135 L Potassium 3.9 Chloride 100 Carbon Dioxide 25 Anion Gap 10 BUN 9.0 Creatinine 0.7 Est GFR (CKD-EPI)AfAm 140.55 Est GFR (CKD-EPI)NonAf 121.27 Random Glucose 96 Lactic Acid Calcium 9.7 Total Bilirubin 0.9 AST 20 ALT 12 L Alkaline Phosphatase 61 Total Protein 8.4 H Albumin 4.8 Beta HCG, Quant < 1.0 05/04/20 05/05/20 21:15 06:49 WBC 8.3 RBC 3.89 Hgb 12.2 Hct 37.6 MCV 96.6 H MCH 31.3 MCHC 32.4 RDW 11.6 Plt Count 228 MPV 7.5 Absolute Neuts (auto) 5.6 Neutrophils % 67.5 Lymphocytes % 20.7 Monocytes % 10.7 H Eosinophils % 0.7 Basophils % 0.4 Sodium Potassium Chloride Carbon Dioxide Anion Gap BUN Creatinine Est GFR (CKD-EPI)AfAm Est GFR (CKD-EPI)NonAf Random Glucose Lactic Acid 1.4 Calcium Total Bilirubin AST ALT Alkaline Phosphatase Total Protein Albumin Beta HCG, Quant Active Medications Generic Name Dose Route Start Last Admin Trade Name Freq PRN Reason Stop Dose Admin Sodium Chloride 1,000 mls @ 1,000 mls/hr 05/05/20 07:46 05/05/20 08:22 Normal Saline - IV 05/05/20 08:45 1,000 mls/hr ASDIR STA Administration Piperacillin Sod/Tazobactam 50 mls @ 100 mls/hr 05/05/20 08:00 Sod 3.375 gm/ Dextrose IVPB Q8H DAMIEN Protocol Piperacillin Sod/Tazobactam 50 mls @ 100 mls/hr 05/05/20 08:00 05/05/20 08:21 Sod 3.375 gm/ Dextrose IVPB 05/06/20 08:29 100 mls/hr Q8H DAMIEN Administration Protocol Oxycodone HCl 5 mg 05/05/20 07:48 Roxicodone - PO Q6H PRN PAIN LEVEL 6-10 Vancomycin HCl 1,000 mg 05/05/20 10:00 Vancomycin (Pre-Docked) IVPB DAILY DAMIEN Protocol ASSESSMENT/PLAN: 24 year-old female with a PMH significant for Ant thyroiditis, melanoma, and recurrent left hand cellulitis, admitted for left hand abscesses and cellulitis. Left hand cellulitis Lymphangitis --five discrete pustular abscesses at the base of left index finger --continue Vanc (day #1) and Zosyn (day #1) --blood cultures pending; discussed getting wound culture with Dr. 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 Full code. Visit type - Emergency Visit Emergency Visit: Yes ED Registration Date: 05/04/20 Care time: The patient presented to the Emergency Department on the above date and was hospitalized for further evaluation of their emergent condition. - New Patient This patient is new to me today: Yes Date on this admission: 05/05/20 - Critical Care Critical Care patient: Yes Total Critical Care Time (in minutes): 60 Critical Care Statement: The care of this patient involved high complexity decision making to prevent further life threatening deterioration of the patient's condition and/or to evaluate & treat vital organ system(s) failure or risk of failure.
[2020-05-05 08:43] LABS: CREATININE 0.7 mg/dl (0.55-1.3); POTASSIUM 3.9 mmol/L (3.5-5.1)
--- NOTE | 2020-05-05 08:49 | CON.ID ---
Consult - Past Medical History ...LMP: 04/21/20 ...: No Additional Medical History: hypothyroid (autoimmune). melanoma - Alcohol/Substance Use Hx Alcohol Use: ("social") - Smoking History Smoking history: Never smoked Have you smoked in the past 12 months: No Home Medications - Allergies Allergies/Adverse Reactions: Allergies Allergy/AdvReac Type Severity Reaction Status Date / Time No Known Allergies Allergy Verified 05/04/20 15:04 - Home Medications Home Medications: Ambulatory Orders Desogestrel-Ethinyl Estradiol [Apri] 1 each PO DAILY 05/04/20 Physical Exam Vital Signs: Vital Signs Temperature 98.4 F 05/05/20 03:49 Pulse Rate 96 H 05/05/20 03:49 Respiratory Rate 16 05/05/20 07:32 Blood Pressure 111/67 05/05/20 03:49 O2 Sat by Pulse Oximetry (%) 98 05/05/20 07:32 Labs: CBC, BMP 05/05/20 06:49 05/05/20 06:49
[2020-05-05] MEDS: ENOXAPARIN NA (PORCINE) 40 MG/0.4 ML DISP.SYRIN SQ SCH (09:38)
[2020-05-05] MEDS: SODIUM CHLORIDE 1,000 ML IV SCH (09:39)
[2020-05-05] MEDS ORDERED: VANCOMYCIN 1 GM in D5W (PRE-DOCKED) 1,000 MG/250 ML IVPB SCH (10:00)
[2020-05-05] MEDS: DOXYCYCLINE HYCLATE 100 MG CAPSULE PO SCH ×2 (15:30→18:34)
[2020-05-05] MEDS: valACYclovir HCL 500 MG TABLET (FP) PO SCH ×2 (16:52→22:24)
[2020-05-05] MEDS: PIPERACILLIN/TAZOB 3.375 GM 3.375 GM in DEXTROSE 5%-WATER - 50 ML IVPB SCH (18:34)
[2020-05-06] MEDS ORDERED: DEXTROSE 5%-WATER - 50 ML IVPB ONE ×2 (01:22→09:06)
[2020-05-06] MEDS ORDERED: PIPERACILLIN/TAZOBACTAM 3.375 GM VIAL IVPB ONE ×2 (01:22→09:06)
[2020-05-06] MEDS: PIPERACILLIN/TAZOB 3.375 GM 3.375 GM in DEXTROSE 5%-WATER - 50 ML IVPB SCH ×2 (01:39→09:20)
[2020-05-06] MEDS: valACYclovir HCL 500 MG TABLET (FP) PO SCH (05:11)
[2020-05-06] MEDS: DOXYCYCLINE HYCLATE 100 MG CAPSULE PO SCH (09:13)
[2020-05-06] MEDS: ENOXAPARIN NA (PORCINE) 40 MG/0.4 ML DISP.SYRIN SQ SCH (09:13)
[2020-05-06] MEDS: SODIUM CHLORIDE 1,000 ML IV SCH (09:14)
[2020-05-06 10:04] VITALS: BP 98/64; PULSE 94; TEMP 98.5
--- NOTE | 2020-05-06 12:03 | DS ---
Physical Exam: SUBJECTIVE: Patient seen and examined OBJECTIVE: Vital Signs Period Temp Pulse Resp BP Sys/Braga Pulse Ox Last 24 Hr 98.4 F-98.9 F 80-94 16-18 97-104/49-64 96-100 PHYSICAL EXAM GENERAL: The patient is awake, alert, and fully oriented, in no acute distress. HEAD: Normal with no signs of trauma. EYES: PERRL, extraocular movements intact, sclera anicteric, conjunctiva clear. ENT: Ears normal, nares patent, oropharynx clear without exudates, moist mucous membranes. NECK: Trachea midline, full range of motion, supple. LUNGS: Breath sounds equal, clear to auscultation bilaterally, no wheezes, no crackles, no accessory muscle use. HEART: Regular rate and rhythm, S1, S2 without murmur, rub or gallop. ABDOMEN: Soft, nontender, nondistended, normoactive bowel sounds, no guarding, no rebound, no hepatosplenomegaly, no masses. EXTREMITIES: 2+ pulses, warm, well-perfused, no edema. NEUROLOGICAL: Cranial nerves II through XII grossly intact. Normal speech, gait not observed. PSYCH: Normal mood, normal affect. SKIN: Warm, dry, normal turgor, no rashes or lesions noted. LABS Laboratory Results - last 24 hr 05/04/20 18:00 COVID-19 (TITI) Not detected HOSPITAL COURSE: Date of Admission:05/04/20 Date of Discharge: 05/06/20 Minutes to complete discharge: 35 Discharge Summary Problems reviewed: Yes Reason For Visit: CELLULITIS OF LEFT HAND Current Active Problems Cellulitis (Acute) Condition: Stable - Instructions - Home Medications Comprehensive Discharge Medication List: Ambulatory Orders Desogestrel-Ethinyl Estradiol [Apri] 1 each PO DAILY 05/04/20
== END 2020-05-06 13:30 | disposition home or self-care (01) | DRG 603 ==
LOC: FER 17:22 → FM/S 20:06
PROVIDERS: ADMIT Internal Medicine; ATTEND Nurse Practitioner Acute Care
DX: L03.114 Cellulitis of left upper limb (principal); E03.9 Hypothyroidism, unspecified; I89.1 Lymphangitis
CPT/HCPCS: 36415; 71046-TC-FY; 73130-TC-LT-FY; 80048; 80053; 83605; 84702; 85025; 87040; 87252; 99285-25; C9803; U0003

== ENCOUNTER 2020-08-19 18:56 | Emergency (ER) | payer OTHER ==
[2020-08-19 19:06] VITALS: BP 105/70; PULSE 105; TEMP 99.1; BMI 24.3
[2020-08-19 19:44] LABS: BASO % 1.3 % (0-2.0); EOS % 0.5 % (0-4.5); HEMOGLOBIN 14.3 GM/dl (10.7-15.3); LYMPH % 22.8 % (8-40); MCH 32.7 pg (25.7-33.7); MCHC 34.8 g/dl (32.0-36.0); MEAN CELL VOLUME 94.1 fl (80-96); MEAN PLT VOLUME 7.2 fl (7.5-11.1); MONO % 6.6 % (3.8-10.2); NEUT % 68.8 % (42.8-82.8); PLATELET COUNT 286 K/MM3 (134-434); RBC 4.36 M/mm3 (3.60-5.2); RDW 11.3 % (11.6-15.6); WHITE BLOOD COUNT 8.8 K/mm3 (4.0-10.8)
[2020-08-19 19:53] LABS: ALBUMIN 4.5 g/dl (3.4-5.0); BILIRUBIN,TOTAL 0.9 mg/dl (0.2-1); CALCIUM 9.4 mg/dl (8.5-10); CREATININE 0.6 mg/dl (0.55-1.3); TOT PROT 7.6 g/dl (6.4-8.2)
== END 2020-08-19 21:26 | disposition home or self-care (01) ==
LOC: FER 18:56
DX: R05 Cough (principal)
CPT/HCPCS: 36415; 80053; 85025; 85379; 99284-25

== ENCOUNTER 2020-10-07 12:44 | Emergency (ER) | payer OTHER ==
[2020-10-07 13:22] VITALS: BP 105/60; PULSE 88; TEMP 98.7; BMI 24.0
[2020-10-07] MEDS ORDERED: DALBAVANCIN HCL 1,500 MG in DEXTROSE 5%-WATER - 500 ML IVPB ONE (13:26)
[2020-10-07] MEDS ORDERED: DALBAVANCIN HCL 500 MG VIAL (RESTRICTED TO ID ONLY) IVPB ONE (13:57)
[2020-10-07 14:13] LABS: BASO % 0.8 % (0-2.0); EOS % 0.4 % (0-4.5); HEMOGLOBIN 13.8 GM/dl (10.7-15.3); LYMPH % 25.6 % (8-40); MCH 32.2 pg (25.7-33.7); MCHC 34.4 g/dl (32.0-36.0); MEAN CELL VOLUME 93.7 fl (80-96); MEAN PLT VOLUME 7.4 fl (7.5-11.1); MONO % 10.4 % (3.8-10.2); NEUT % 62.8 % (42.8-82.8); PLATELET COUNT 234 K/MM3 (134-434); RBC 4.27 M/mm3 (3.60-5.2); RDW 11.3 % (11.6-15.6); WHITE BLOOD COUNT 6.6 K/mm3 (4.0-10.8)
[2020-10-07 14:16] LABS: ALBUMIN 4.1 g/dl (3.4-5.0); BILIRUBIN,TOTAL 0.8 mg/dl (0.2-1); CALCIUM 9.4 mg/dl (8.5-10); CREATININE 0.7 mg/dl (0.55-1.3); POTASSIUM 3.8 mmol/L (3.5-5.1); TOT PROT 7.5 g/dl (6.4-8.2)
== END 2020-10-07 15:10 | disposition home or self-care (01) ==
LOC: FER 12:44
DX: L03.012 Cellulitis of left finger (principal); B00.89 Other herpesviral infection
CPT/HCPCS: 36415; 80053; 85025; 99284-25; J0875

== ENCOUNTER 2021-03-12 07:06 | Emergency (ER) | payer OTHER ==
[2021-03-12 07:16] VITALS: BP 101/68; PULSE 95; TEMP 98.1; BMI 24.7
[2021-03-12] MEDS ORDERED: DALBAVANCIN HCL 1,500 MG in DEXTROSE 5%-WATER - 500 ML IVPB ONE (07:30)
[2021-03-12] MEDS ORDERED: DALBAVANCIN HCL 500 MG VIAL (RESTRICTED TO ID ONLY) IVPB ONE (07:52)
[2021-03-12 08:09] LABS: BASO % 1.2 % (0-2.0); EOS % 0.7 % (0-4.5); HEMATOCRIT 39.2 % (32.4-45.2); HEMOGLOBIN 13.5 GM/dl (10.7-15.3); LYMPH % 19.2 % (8-40); MCH 32.2 pg (25.7-33.7); MCHC 34.6 g/dl (32.0-36.0); MEAN PLT VOLUME 7.2 fl (7.5-11.1); NEUT % 68.9 % (42.8-82.8); PLATELET COUNT 270 10^3/uL (134-434); RBC 4.21 M/mm3 (3.60-5.2); RDW 11.5 % (11.6-15.6); WHITE BLOOD COUNT 8.1 K/mm3 (4.0-10.8)
[2021-03-12 08:17] LABS: ALBUMIN 4.6 g/dl (3.4-5.0); BILIRUBIN,TOTAL 0.7 mg/dl (0.2-1); CREATININE 0.6 mg/dl (0.55-1.3); TOT PROT 8.1 g/dl (6.4-8.2)
== END 2021-03-12 09:49 | disposition home or self-care (01) ==
LOC: FER 07:06
DX: L03.012 Cellulitis of left finger (principal); B00.89 Other herpesviral infection; E87.1 Hypo-osmolality and hyponatremia; Z32.01 Encounter for pregnancy test, result positive
CPT/HCPCS: 36415; 80053; 84703; 85025; 99284-25; J0875

== ENCOUNTER 2021-05-25 02:11 | Emergency (ER) | payer OTHER ==
[2021-05-25 02:23] VITALS: BP 115/66; PULSE 92; TEMP 98.2; BMI 24.4
[2021-05-25] MEDS ORDERED: DALBAVANCIN HCL 1,500 MG in DEXTROSE 5%-WATER - 500 ML IVPB ONE (02:26)
== END 2021-05-25 03:58 | disposition home or self-care (01) ==
LOC: FER 02:11
DX: L03.012 Cellulitis of left finger (principal)
CPT/HCPCS: 99284-25; J0875